=== PATIENT | female | born 1945 | race Caucasian/White ===

== ENCOUNTER 2017-11-09 13:32 | Inpatient (IN) ==
[2017-11-09 16:05] LABS: Basophils % 0.2 %; Eosinophils % 0.2 %; Hematocrit 35.8 % (35.3-44.9); Hemoglobin 11.2 g/dL (11.5-15.4); Immature Granulocytes % 1.9 % (0-4); Lymphocytes # 0.5 K/mcL (0.6-4.6); Lymphocytes % 2.8 %; Mean Corpuscular HGB Conc 31.3 g/dL (31.6-35.5); Mean Corpuscular Volume 89.5 fL (83.0-100.0); Mean Platelet Volume 10.6 fL (9.4-12.4); Monocytes # 0.9 K/mcL (0.0-1.3); Monocytes % 4.8 %; Platelet Count 262 K/mcL (140-400); Red Cell Distribution Width 15.5 % (11.5-14.5); Segmented Neutrophils % 90.1 %
[2017-11-09 16:08] LABS: Albumin 3.2 g/dL (3.5-5.7); Bilirubin,Total 0.9 mg/dL (0.3-1.0); Calcium 9.5 mg/dL (8.6-10.3); Potassium 3.7 mEq/L (3.5-5.1)
[2017-11-09 16:14] LABS: Albumin/Globulin Ratio 0.7 (1.1-2.2); Globulin 4.3 g/dL (2.4-3.5); Total Protein 7.5 g/dL (6.4-8.9)
[2017-11-09 16:41] LABS: Bilirubin,Urine Small (Negative); Blood,Urine Negative (Negative); Clarity,Urine Cloudy (Clear); Color,Urine Dark Yellow (Yellow); Glucose,Urine (UA) Normal (Normal); Ketones,Urine Negative (Negative); Leukocyte Esterase,Urine Small (Negative); Nitrite,Urine Negative (Negative); PH,Urine 5.5 pH Units (5.0-8.0); Protein,Urine Trace mg/dL (Neg-Trace); Urobilinogen,Urine Normal (Normal)
[2017-11-09 16:44] LABS: Bacteria,Urine None Seen per hpf (None-Few); Hyaline Casts,Urine None Seen per lpf (None-Few); RBC,Urine 0-3 per hpf (0-3); Squamous Epithelial Cell,Urine Many per lpf (None-Few)
--- NOTE | 2017-11-09 16:59 | Emergency Department Note ---
Disposition Clinical Impression: Cellulitis Disposition: Admitted As Inpatient Condition: Good Referrals: Orlin Martinez MD [Primary Care Provider] - Forms: ED Satisfaction Letter General Adult HPI - General Chief complaint: ED Extremity Problem,Nontraumatic Stated complaint: weakness/pain/swelling in legs Time Seen by Provider: 11/09/17 16:56 Source: patient Limitations: no limitations - History of Present Illness Pain Scale: 8 - Related Data Home Medications Medication Instructions Recorded Confirmed Furosemide [Lasix] 40 mg PO DAILY 03/08/16 09/29/17 Levothyroxine [Synthroid] 125 mcg PO DAILY 03/08/16 09/29/17 Cholecalciferol (D-3) [Vitamin D] 1,000 unit PO DAILY 03/09/16 09/29/17 Cyanocobalamin (Vitamin B-12) 1,000 mcg PO DAILY 03/09/16 09/29/17 [Vitamin B12] Folic Acid 0.4 mg PO DAILY 03/09/16 09/29/17 Lisinopril/Hydrochlorothiazide 1 tab PO DAILY 03/09/16 09/29/17 [Zestoretic 20-25 mg Tablet] [place]-3/Dha/Epa/Fish Oil [Fish Oil] 1,000 mg PO DAILY 03/18/16 09/29/17 Metoprolol [Lopressor] 50 mg PO DAILY 09/29/17 09/29/17 Omeprazole [PriLOSEC] 40 mg PO DAILY 09/29/17 09/29/17 Warfarin [Coumadin] 7.5 mg PO 1800 09/29/17 09/29/17 Allergies Allergy/AdvReac Type Severity Reaction Status Date / Time aspirin Allergy Difficulty Verified 03/08/16 16:23 Breathing ibuprofen Allergy Difficulty Verified 03/08/16 16:23 Breathing acetaminophen AdvReac Gastrointestinal Verified 03/08/16 22:29 [From Excedrin Back and Body] Upset calcium carbonate AdvReac Gastrointestinal Verified 03/08/16 22:29 [From Excedrin Back and Body] Upset Past Medical History - Past Medical History Medical history: Reports: atrial fibrillation, CHF, hypertension, thyroid disease Surgical history: Reports: other Psychiatric history: Reports: no psych history 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 - Social History Smoking Status: Current every day smoker Smokeless Tobacco Status: No Alcohol use: Reports: none Drug use: Reports: none Physical Exam - General Limitations: no limitations General appearance: alert, in no apparent distress Course Vital Signs Temperature 97.7 F 11/09/17 13:58 Pulse Rate 94 11/09/17 13:58 Respiratory Rate 16 11/09/17 13:58 Blood Pressure 113/78 11/09/17 13:58 O2 Sat by Pulse Oximetry 98 11/09/17 13:58 Temperature 97.9 F 11/09/17 18:07 Pulse Rate 89 11/09/17 18:07 Respiratory Rate 22 11/09/17 18:07 Blood Pressure 108/75 11/09/17 18:07 O2 Sat by Pulse Oximetry 94 11/09/17 18:07 Oxygen Delivery Oxygen Delivery Room Air Medical Decision Making - Lab Data Result diagrams: 11/09/17 15:46 11/09/17 15:46 Lab Results 11/09/17 11/09/17 11/09/17 Range/Units 15:46 15:46 15:46 WBC 18.8 H (4.3-11.1) K/mcL RBC 4.00 (3.82-4.97) M/mcL Hgb 11.2 L (11.5-15.4) g/dL Hct 35.8 (35.3-44.9) % MCV 89.5 (83.0-100.0) fL MCH 28.0 (28.0-33.3) pg MCHC 31.3 L (31.6-35.5) g/dL RDW 15.5 H (11.5-14.5) % Plt Count 262 (140-400) K/mcL MPV 10.6 (9.4-12.4) fL Immature Gran % 1.9 (0-4) % Seg Neutrophils % 90.1 % Lymphocytes % 2.8 % Monocytes % 4.8 % Eosinophils % 0.2 % Basophils % 0.2 % Neutrophils # 17.0 H (1.6-8.9) K/mcL Lymphocytes # 0.5 L (0.6-4.6) K/mcL Monocytes # 0.9 (0.0-1.3) K/mcL Eosinophils # 0.0 (0.0-0.6) K/mcL Basophils # 0.0 (0.0-0.2) K/mcL PT (9.4-12.1) Seconds INR Sodium 133 L (136-145) mEq/L Potassium 3.7 (3.5-5.1) mEq/L Chloride 99 (98-107) mEq/L Carbon Dioxide 26 (23-29) mEq/L BUN 55 H (8-23) mg/dL Creatinine 1.63 H (0.60-1.20) mg/dL Est GFR ( Amer) 37 L (> 60) Est GFR (Non-Af Amer) 31 L (> 60) BUN/Creatinine Ratio 34 H (6-26) Glucose 115 H (70-105) mg/dL Calculated Osmolality 292 (280-300) Lactic Acid 1.1 (0.5-2.2) mmol/L Calcium 9.5 (8.6-10.3) mg/dL Total Bilirubin 0.9 (0.3-1.0) mg/dL AST 9 L (13-39) Units/L ALT 9 (7-52) Units/L Alkaline Phosphatase 149 H (34-104) Units/L Troponin I (< 0.04) ng/mL Serum Total Protein 7.5 (6.4-8.9) g/dL Albumin 3.2 L (3.5-5.7) g/dL Globulin 4.3 H (2.4-3.5) g/dL Albumin/Globulin Ratio 0.7 L (1.1-2.2) Urine Color (Yellow) Urine Clarity (Clear) Urine pH (5.0-8.0) pH Units Ur Specific [place] (1.010-1.025) Urine Protein (Neg-Trace) mg/dL Urine Glucose (UA) (Normal) mg/dL Urine Ketones (Negative) mg/dL Urine Blood (Negative) Urine Nitrite (Negative) Urine Bilirubin (Negative) Urine Urobilinogen (Normal) mg/dL Ur Leukocyte Esterase (Negative) Urine Microscopic RBC (0-3) per hpf Urine Microscopic WBC (0-3) per hpf Ur Squamous Epith Cells (None-Few) per lpf Amorphous Sediment (Few) Urine Bacteria (None-Few) per hpf Hyaline Casts (None-Few) per lpf Ur Culture Indicated? (NO) 11/09/17 11/09/17 11/09/17 Range/Units 15:46 15:46 16:22 WBC (4.3-11.1) K/mcL RBC (3.82-4.97) M/mcL Hgb (11.5-15.4) g/dL Hct (35.3-44.9) % MCV (83.0-100.0) fL MCH (28.0-33.3) pg MCHC (31.6-35.5) g/dL RDW (11.5-14.5) % Plt Count (140-400) K/mcL MPV (9.4-12.4) fL Immature Gran % (0-4) % Seg Neutrophils % % Lymphocytes % % Monocytes % % Eosinophils % % Basophils % % Neutrophils # (1.6-8.9) K/mcL Lymphocytes # (0.6-4.6) K/mcL Monocytes # (0.0-1.3) K/mcL Eosinophils # (0.0-0.6) K/mcL Basophils # (0.0-0.2) K/mcL PT 33.4 H (9.4-12.1) Seconds INR 3.0 Sodium (136-145) mEq/L Potassium (3.5-5.1) mEq/L Chloride (98-107) mEq/L Carbon Dioxide (23-29) mEq/L BUN (8-23) mg/dL Creatinine (0.60-1.20) mg/dL Est GFR ( Amer) (> 60) Est GFR (Non-Af Amer) (> 60) BUN/Creatinine Ratio (6-26) Glucose (70-105) mg/dL Calculated Osmolality (280-300) Lactic Acid (0.5-2.2) mmol/L Calcium (8.6-10.3) mg/dL Total Bilirubin (0.3-1.0) mg/dL AST (13-39) Units/L ALT (7-52) Units/L Alkaline Phosphatase (34-104) Units/L Troponin I < 0.03 (< 0.04) ng/mL Serum Total Protein (6.4-8.9) g/dL Albumin (3.5-5.7) g/dL Globulin (2.4-3.5) g/dL Albumin/Globulin Ratio (1.1-2.2) Urine Color Dark Yellow (Yellow) Urine Clarity Cloudy A (Clear) Urine pH 5.5 (5.0-8.0) pH Units Ur Specific [place] 1.020 (1.010-1.025) Urine Protein Trace (Neg-Trace) mg/dL Urine Glucose (UA) Normal (Normal) mg/dL Urine Ketones Negative (Negative) mg/dL Urine Blood Negative (Negative) Urine Nitrite Negative (Negative) Urine Bilirubin Small H (Negative) Urine Urobilinogen Normal (Normal) mg/dL Ur Leukocyte Esterase Small H (Negative) Urine Microscopic RBC 0-3 (0-3) per hpf Urine Microscopic WBC 5-15 H (0-3) per hpf Ur Squamous Epith Cells Many H (None-Few) per lpf Amorphous Sediment Few (Few) Urine Bacteria None Seen (None-Few) per hpf Hyaline Casts None Seen (None-Few) per lpf Ur Culture Indicated? NO. (NO) Attestation Statement - Attestation Attestation: I examined this patient and my medical decision-making was reviewed with the Resident Physician. I agree with the documented findings, disposition and treatment plan as described except to the extent set forth below. [id number] time provided Patient arrives with a swollen, erythematous left foot. She appears to have chronic lymphadenopathy but states subjectively this is worse. Triage note and vitals reviewed by me
--- NOTE | 2017-11-09 17:13 | Emergency Department Note ---
Disposition Clinical Impression: Cellulitis Qualifiers: Site of cellulitis: extremity Site of cellulitis of extremity: lower extremity Laterality: left Qualified Code(s): L03.116 - Cellulitis of left lower limb Disposition: Admitted As Inpatient Condition: Good Referrals: Orlin Martinez MD [Primary Care Provider] - Forms: ED Satisfaction Letter General Adult HPI - General Chief complaint: ED Extremity Problem,Nontraumatic Stated complaint: weakness/pain/swelling in legs Time Seen by Provider: 11/09/17 16:56 Source: patient Limitations: no limitations Nursing Notes Reviewed: Yes Vital Signs Reviewed: Yes - History of Present Illness HPI Narrative: Patient with past medical history of atrial fibrillation on Coumadin presents today for concern for swelling and erythema of the left lower extremity. The patient has been following with Dr. Jones for concern for a left medial heel wound. She says that it has been a relatively small wound but has gotten significantly worse over the last 2 days. Patient has had associated subjective fever and chills. Patient has had sleeping the lower leg secondary to overall edema but no purulent drainage. Patient's left lower extremity is erythematous and swollen from the knee to the foot. Sensation is still intact. Patient has concern for cellulitis. Blood work as well as blood cultures will be obtained. Patient will be started on vancomycin. Pain Scale: 8 - Related Data Home Medications Medication Instructions Recorded Confirmed Furosemide [Lasix] 40 mg PO DAILY 03/08/16 09/29/17 Levothyroxine [Synthroid] 125 mcg PO DAILY 03/08/16 09/29/17 Cholecalciferol (D-3) [Vitamin D] 1,000 unit PO DAILY 03/09/16 09/29/17 Cyanocobalamin (Vitamin B-12) 1,000 mcg PO DAILY 03/09/16 09/29/17 [Vitamin B12] Folic Acid 0.4 mg PO DAILY 03/09/16 09/29/17 Lisinopril/Hydrochlorothiazide 1 tab PO DAILY 03/09/16 09/29/17 [Zestoretic 20-25 mg Tablet] [place]-3/Dha/Epa/Fish Oil [Fish Oil] 1,000 mg PO DAILY 03/18/16 09/29/17 Metoprolol [Lopressor] 50 mg PO DAILY 09/29/17 09/29/17 Omeprazole [PriLOSEC] 40 mg PO DAILY 09/29/17 09/29/17 Warfarin [Coumadin] 7.5 mg PO 1800 09/29/17 09/29/17 Allergies Allergy/AdvReac Type Severity Reaction Status Date / Time aspirin Allergy Difficulty Verified 03/08/16 16:23 Breathing ibuprofen Allergy Difficulty Verified 03/08/16 16:23 Breathing acetaminophen AdvReac Gastrointestinal Verified 03/08/16 22:29 [From Excedrin Back and Body] Upset calcium carbonate AdvReac Gastrointestinal Verified 03/08/16 22:29 [From Excedrin Back and Body] Upset Review of Systems: CONSTITUTIONAL: Fevers and chills No weight loss HEENT: Eyes: No visual changes. Ears, Nose, Throat: No hearing loss, difficulty talking or unable to swallow. SKIN: Erythema CARDIOVASCULAR: Lower extremity swelling No chest pain, chest pressure or chest discomfort. RESPIRATORY: No shortness of breath, cough or sputum. GASTROINTESTINAL: No anorexia, nausea, vomiting or diarrhea. No abdominal pain or blood. GENITOURINARY: No burning on urination or hematuria. NEUROLOGICAL: No headache, dizziness, syncope, paralysis, ataxia, numbness or tingling in the extremities. No change in bowel or bladder control. MUSCULOSKELETAL: No muscle pain, back pain, joint pain or stiffness. 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 Blanching. The Refill. Sensory intact. Neuro: Alert and Oriented to person, place, and time; No focal deficit, CN 2-12 symmetric and intact - General Limitations: no limitations General appearance: alert, in no apparent distress Course - Reevaluation(s) Reevaluation #1: Vancomycin ordered. Patient has elevated white count but does not have fever or tachycardia. Blood cultures obtained. - Consultations Consultation #1: Discussed with hospitalist, Patel Devries. Patient accepted for admission. Vital Signs Temperature 97.7 F 11/09/17 13:58 Pulse Rate 94 11/09/17 13:58 Respiratory Rate 16 11/09/17 13:58 Blood Pressure 113/78 11/09/17 13:58 O2 Sat by Pulse Oximetry 98 11/09/17 13:58 Temperature 97.7 F 11/09/17 13:58 Pulse Rate 94 11/09/17 13:58 Respiratory Rate 16 11/09/17 13:58 Blood Pressure 113/78 11/09/17 13:58 O2 Sat by Pulse Oximetry 98 11/09/17 13:58 Oxygen Delivery Oxygen Delivery Room Air Medical Decision Making - Medical Records Medical records reviewed: Yes I reviewed the patient's medical records. - Lab Data Lab results reviewed: Yes I reviewed the patient's lab results. Result diagrams: 11/09/17 15:46 11/09/17 15:46 Lab Results 11/09/17 11/09/17 11/09/17 Range/Units 15:46 15:46 15:46 WBC 18.8 H (4.3-11.1) K/mcL RBC 4.00 (3.82-4.97) M/mcL Hgb 11.2 L (11.5-15.4) g/dL Hct 35.8 (35.3-44.9) % MCV 89.5 (83.0-100.0) fL MCH 28.0 (28.0-33.3) pg MCHC 31.3 L (31.6-35.5) g/dL RDW 15.5 H (11.5-14.5) % Plt Count 262 (140-400) K/mcL MPV 10.6 (9.4-12.4) fL Immature Gran % 1.9 (0-4) % Seg Neutrophils % 90.1 % Lymphocytes % 2.8 % Monocytes % 4.8 % Eosinophils % 0.2 % Basophils % 0.2 % Neutrophils # 17.0 H (1.6-8.9) K/mcL Lymphocytes # 0.5 L (0.6-4.6) K/mcL Monocytes # 0.9 (0.0-1.3) K/mcL Eosinophils # 0.0 (0.0-0.6) K/mcL Basophils # 0.0 (0.0-0.2) K/mcL PT (9.4-12.1) Seconds INR Sodium 133 L (136-145) mEq/L Potassium 3.7 (3.5-5.1) mEq/L Chloride 99 (98-107) mEq/L Carbon Dioxide 26 (23-29) mEq/L BUN 55 H (8-23) mg/dL Creatinine 1.63 H (0.60-1.20) mg/dL Est GFR ( Amer) 37 L (> 60) Est GFR (Non-Af Amer) 31 L (> 60) BUN/Creatinine Ratio 34 H (6-26) Glucose 115 H (70-105) mg/dL Calculated Osmolality 292 (280-300) Lactic Acid 1.1 (0.5-2.2) mmol/L Calcium 9.5 (8.6-10.3) mg/dL Total Bilirubin 0.9 (0.3-1.0) mg/dL AST 9 L (13-39) Units/L ALT 9 (7-52) Units/L Alkaline Phosphatase 149 H (34-104) Units/L Troponin I (< 0.04) ng/mL Serum Total Protein 7.5 (6.4-8.9) g/dL Albumin 3.2 L (3.5-5.7) g/dL Globulin 4.3 H (2.4-3.5) g/dL Albumin/Globulin Ratio 0.7 L (1.1-2.2) Urine Color (Yellow) Urine Clarity (Clear) Urine pH (5.0-8.0) pH Units Ur Specific [place] (1.010-1.025) Urine Protein (Neg-Trace) mg/dL Urine Glucose (UA) (Normal) mg/dL Urine Ketones (Negative) mg/dL Urine Blood (Negative) Urine Nitrite (Negative) Urine Bilirubin (Negative) Urine Urobilinogen (Normal) mg/dL Ur Leukocyte Esterase (Negative) Urine Microscopic RBC (0-3) per hpf Urine Microscopic WBC (0-3) per hpf Ur Squamous Epith Cells (None-Few) per lpf Amorphous Sediment (Few) Urine Bacteria (None-Few) per hpf Hyaline Casts (None-Few) per lpf Ur Culture Indicated? (NO) 11/09/17 11/09/17 11/09/17 Range/Units 15:46 15:46 16:22 WBC (4.3-11.1) K/mcL RBC (3.82-4.97) M/mcL Hgb (11.5-15.4) g/dL Hct (35.3-44.9) % MCV (83.0-100.0) fL MCH (28.0-33.3) pg MCHC (31.6-35.5) g/dL RDW (11.5-14.5) % Plt Count (140-400) K/mcL MPV (9.4-12.4) fL Immature Gran % (0-4) % Seg Neutrophils % % Lymphocytes % % Monocytes % % Eosinophils % % Basophils % % Neutrophils # (1.6-8.9) K/mcL Lymphocytes # (0.6-4.6) K/mcL Monocytes # (0.0-1.3) K/mcL Eosinophils # (0.0-0.6) K/mcL Basophils # (0.0-0.2) K/mcL PT 33.4 H (9.4-12.1) Seconds INR 3.0 Sodium (136-145) mEq/L Potassium (3.5-5.1) mEq/L Chloride (98-107) mEq/L Carbon Dioxide (23-29) mEq/L BUN (8-23) mg/dL Creatinine (0.60-1.20) mg/dL Est GFR ( Amer) (> 60) Est GFR (Non-Af Amer) (> 60) BUN/Creatinine Ratio (6-26) Glucose (70-105) mg/dL Calculated Osmolality (280-300) Lactic Acid (0.5-2.2) mmol/L Calcium (8.6-10.3) mg/dL Total Bilirubin (0.3-1.0) mg/dL AST (13-39) Units/L ALT (7-52) Units/L Alkaline Phosphatase (34-104) Units/L Troponin I < 0.03 (< 0.04) ng/mL Serum Total Protein (6.4-8.9) g/dL Albumin (3.5-5.7) g/dL Globulin (2.4-3.5) g/dL Albumin/Globulin Ratio (1.1-2.2) Urine Color Dark Yellow (Yellow) Urine Clarity Cloudy A (Clear) Urine pH 5.5 (5.0-8.0) pH Units Ur Specific [place] 1.020 (1.010-1.025) Urine Protein Trace (Neg-Trace) mg/dL Urine Glucose (UA) Normal (Normal) mg/dL Urine Ketones Negative (Negative) mg/dL Urine Blood Negative (Negative) Urine Nitrite Negative (Negative) Urine Bilirubin Small H (Negative) Urine Urobilinogen Normal (Normal) mg/dL Ur Leukocyte Esterase Small H (Negative) Urine Microscopic RBC 0-3 (0-3) per hpf Urine Microscopic WBC 5-15 H (0-3) per hpf Ur Squamous Epith Cells Many H (None-Few) per lpf Amorphous Sediment Few (Few) Urine Bacteria None Seen (None-Few) per hpf Hyaline Casts None Seen (None-Few) per lpf Ur Culture Indicated? NO. (NO) - Radiology Data Radiology results reviewed: Yes I reviewed the patient's radiology results. - EKG Data EKG #1 EKG attestation: Yes I reviewed and interpreted this EKG. EKG results narrative: EKG shows atrial fibrillation with a ventricular rate of 86. QRS 97. QTC 402. No significant elevations or depressions.
[2017-11-09 17:20] LABS: Amorphous Sediment,Urine Few (Few)
[2017-11-09 17:30] LABS: Prothrombin Time 33.4 Seconds (9.4-12.1)
[2017-11-09] MEDS ORDERED: *HR* Morphine Immed Rel 30 MG TABLET PO ONE (17:53)
[2017-11-09] MEDS ORDERED: Naloxone 0.4 MG/ML INJ IVP PRN (21:58)
[2017-11-09] MEDS ORDERED: Vancomycin 1,750 MG in 0.9 % Sodium Chloride 250 ML IVPB SCH (23:00)
[2017-11-10] MEDS ORDERED: *HR* Morphine Immed Rel 30 MG TABLET PO PRN (01:41)
--- NOTE | 2017-11-10 03:23 | Internal Med History&Physical ---
Date of Encounter: 11/09/17 Time of Encounter: 20:00 Assessment and Plan (1) Hypothyroidism Current visit: Yes Status: Acute Cont home medications Qualifiers: Hypothyroidism type: acquired Qualified Code(s): E03.9 - Hypothyroidism, unspecified (2) HTN (hypertension) Current visit: Yes Status: Acute Cont home medications Qualifiers: Hypertension type: essential hypertension Qualified Code(s): I10 - Essential (primary) hypertension (3) Cellulitis Current visit: Yes Status: Acute Pt has cellulitis and leukocytosis. Not meet criteria of sepsis. - Cont iv vancomycin. Pt is at high risk because she is on vanco, needs close monitoring. Qualifiers: Site of cellulitis: extremity Site of cellulitis of extremity: lower extremity Laterality: left Qualified Code(s): L03.116 - Cellulitis of left lower limb (4) DVT prophylaxis Current visit: No Status: Acute Pt is on coumadin with therapeutic INR (5) Atrial fibrillation Current visit: No Status: Chronic HR is well controlled. Pt is on coumadin for AC Qualifiers: Atrial fibrillation type: chronic Qualified Code(s): I48.2 - Chronic atrial fibrillation (6) CKD (chronic kidney disease) Current visit: Yes Status: Acute Cr level is around baseline, avoid nephrotoxic medications, closely titrate vanco (dosing by pharmacy) Qualifiers: Chronic kidney disease stage: stage 3 (moderate) Qualified Code(s): N18.3 - Chronic kidney disease, stage 3 (moderate) Internal Medicine - H&P: HPI Chief complaint: Left leg pain/redness Admitted From: Home Plans for Post Hospital Care: Home History of present illness: Ms. Shelton is a 72 year old female with Hx of A Fib on coumadin, HTN, hypothyroidism, diastolic CHF, hx of recurrent cellulitis present to ER for left leg pain and redness for 4 days. Pt said she has on and off recurrent LE cellulitis for about 4 yrs. It happens either on the right or the left side. This time she has left side pain and skin redness. Pt denies fever, nausea, or vomiting. Pt denies recent travel. Pt was admitted for further management. Past Med Surg Social Fam HX - Past Medical History Medical history: atrial fibrillation, CHF, hypertension, thyroid disease Psychiatric history: no psych history - Past Surgical History Surgical History: other - Social History Smoking Status: Current every day smoker Smokeless Tobacco Status: No Alcohol use: none Drug use: none - Family History Mother Living Status: Father Living Status: Hx Family Cardiac Disorders: Yes (HYPERTENSION.) Son Living Status: Still Living Internal Medicine - H&P: Meds Furosemide [Lasix] 40 mg PO DAILY 03/08/16 [History] Cholecalciferol (D-3) [Vitamin D] 1,000 unit PO DAILY 03/09/16 [History] Cyanocobalamin (Vitamin B-12) [Vitamin B12] 1,000 mcg PO DAILY 03/09/16 [History ] Folic Acid 0.4 mg PO DAILY 03/09/16 [History] Lisinopril/Hydrochlorothiazide [Zestoretic 20-25 mg Tablet] 1 tab PO DAILY 03/09 [History] [place]-3/Dha/Epa/Fish Oil [Fish Oil] 1,000 mg PO DAILY 03/18/16 [History] Omeprazole [PriLOSEC] 40 mg PO DAILY 09/29/17 [History] Warfarin [Coumadin] 7.5 mg PO 1800 09/29/17 [History] Calcium Carbonate [Calcium] 600 mg PO DAILY 11/09/17 [History] Diltiazem HCl [Diltiazem ER] 120 mg PO DAILY 11/09/17 [History] Guaifenesin [Mucinex] 600 mg PO DAILY 11/09/17 [History] Levothyroxine Sodium 150 mcg PO QAM 11/09/17 [History] Metoprolol XL (24 HR) Succ [Toprol XL] 50 mg PO DAILY 11/09/17 [History] 3 Allergy/AdvReac Type Severity Reaction Status Date / Time aspirin Allergy Difficulty Verified 03/08/16 16:23 Breathing ibuprofen Allergy Difficulty Verified 03/08/16 16:23 Breathing acetaminophen AdvReac Gastrointestinal Verified 03/08/16 22:29 [From Excedrin Back and Body] Upset calcium carbonate AdvReac Gastrointestinal Verified 03/08/16 22:29 [From Excedrin Back and Body] Upset All Systems PM: A 10-system review of systems was performed and is negative for pertinent findings except as documented above in the HPI. - Constitutional Vitals: Temp Pulse Resp BP Pulse Ox 97.9 F 95 14 103/53 92 11/10/17 02:45 11/10/17 02:45 11/10/17 02:45 11/10/17 02:45 11/10/17 02:45 General appearance: Present: A&O X 3, no acute distress, answers questions appropriately - Head Head exam: Present: atraumatic, normocephalic - Eye Eye exam: Present: PERRL, conjuntiva pink, sclera anicteric Pupils: Present: PERRL Additional comments: Right eye is blind - Neck Neck exam general surgery: Present: supple, trachea midline. Absent: lymphadenopathy - Respiratory Respiratory exam: Present: CTAB. Absent: accessory muscle use, rales, rhonchi, wheezes - Cardiovascular Cardiovascular exam: Present: irregular rhythm, +S1, +S2. Absent: diastolic murmur, gallop, rubs, systolic murmur - GI/Abdominal GI/Abdominal exam: Present: normal bowel sounds, soft, no peritoneal signs. Absent: distended, tenderness - Extremities Exam Extremities exam: Present: pedal edema (B/L), warm, radial pulses palpable and symmetrical. Absent: calf tenderness, cyanotic Additional comments: Left leg skin redness/ warmth/ tenderness up to above knee. No open wound/ discharge - Neurological Exam Neurological exam: Present: CN II-XII intact, oriented X3, no focal deficits. Absent: pronater drift, facial droop, speech deficit - Skin Skin exam: Present: dry, intact Internal Med - H&P Results - Labs CBC & Chem 7: 11/09/17 15:46 11/09/17 15:46 - EKG Data -: EKG Interpreted by Myself (A Fib) Rate: normal
[2017-11-10 05:13] LABS: Basophils % 0.1 %; Eosinophils # 0.1 K/mcL (0.0-0.6); Eosinophils % 0.4 %; Hematocrit 33.3 % (35.3-44.9); Hemoglobin 10.7 g/dL (11.5-15.4); Immature Granulocytes % 3.9 % (0-4); Lymphocytes # 0.5 K/mcL (0.6-4.6); Lymphocytes % 3.2 %; Mean Corpuscular HGB Conc 32.1 g/dL (31.6-35.5); Mean Corpuscular Hemoglobin 28.1 pg (28.0-33.3); Mean Corpuscular Volume 87.4 fL (83.0-100.0); Mean Platelet Volume 10.5 fL (9.4-12.4); Monocytes # 0.8 K/mcL (0.0-1.3); Monocytes % 4.5 %; Neutrophils # 14.7 K/mcL (1.6-8.9); Platelet Count 241 K/mcL (140-400); Red Blood Count 3.81 M/mcL (3.82-4.97); Red Cell Distribution Width 15.8 % (11.5-14.5); Segmented Neutrophils % 87.9 %
[2017-11-10 05:17] LABS: INR 4.2
[2017-11-10 05:21] LABS: Prothrombin Time 46.5 Seconds (9.4-12.1)
[2017-11-10 05:36] LABS: Calcium 8.9 mg/dL (8.6-10.3); Magnesium 1.9 mg/dL (1.6-2.6); Potassium 3.6 mEq/L (3.5-5.1)
[2017-11-10] MEDS ORDERED: 0.9 % Sodium Chloride 500 ML IVC ONE ×2 (08:49→12:04)
[2017-11-10] MEDS ORDERED: Diltiazem CD (24hr) 120 MG CAPSULE PO SCH (09:00)
[2017-11-10] MEDS ORDERED: Metoprolol XL (24 HR) Succ 50 MG TAB.ER.24H PO SCH (09:00)
[2017-11-10] MEDS ORDERED: Furosemide 40 MG TABLET PO SCH (09:00)
[2017-11-10] MEDS: Cholecalciferol (D-3) 1,000 UNIT TABLET PO SCH (11:17)
[2017-11-10] MEDS: Cyanocobalamin (B-12) 1,000 MCG TABLET PO SCH (11:17)
[2017-11-10] MEDS: Folic Acid 1 MG TABLET PO SCH (11:17)
[2017-11-10] MEDS ORDERED: Methyl Salicylate/Menthol 28 GM TUBE TP PRN (14:42)
[2017-11-10] MEDS ORDERED: 0.9 % Sodium Chloride 1,000 ML IVC ONE ×2 (15:48→18:09)
[2017-11-10] MEDS ORDERED: 0.9 % Sodium Chloride 1,000 ML ONE (15:51)
[2017-11-10] MEDS: FISH OIL 500 MG PO SCH (17:08)
[2017-11-10] MEDS ORDERED: Warfarin perPT PO PRN (18:00)
--- NOTE | 2017-11-10 19:07 | Internal Med Progress Note ---
Date of Encounter: 11/10/17 Time of Encounter: 10:45 - Assessment and plan (1) Cellulitis Current Visit: Yes Status: Acute Assessment and plan: Patient was cellulitis to left lower extremity. She has been placed on IV vancomycin. Today she met SIRS criteria with tachycardia, hypotension, source of infection. Remains afebrile. Continue IV vancomycin. Wound care consult has been entered. Qualifiers: Site of cellulitis: extremity Site of cellulitis of extremity: lower extremity Laterality: left Qualified Code(s): L03.116 - Cellulitis of left lower limb (2) SIRS (systemic inflammatory response syndrome) Current Visit: Yes Status: Acute Assessment and plan: Patient was admitted with cellulitis to left lower extremity. Patient with hypotension today, as well as leukocytosis, and tachycardia. At this point, patient remained hypotensive and is apparently receiving her third liter of 0.9 normal saline bolus. Will add pressors if BP does not normalize after fluid boluses. Continue vancomycin IV Closely monitor vital signs and patient condition. Patient has been moved from observation unit to stepdown unit for closer monitoring. (3) CKD (chronic kidney disease) Current Visit: Yes Status: Chronic Assessment and plan: Stage III. Patient is on vancomycin, pharmacy to dose. Try to avoid other nephrotoxins Patient is receiving IV fluid hydration. Continue to monitor labs. Qualifiers: Chronic kidney disease stage: stage 3 (moderate) Qualified Code(s): N18.3 - Chronic kidney disease, stage 3 (moderate) (4) Hypothyroidism Current Visit: Yes Status: Chronic Assessment and plan: Chronic. Continue home medication. Qualifiers: Hypothyroidism type: acquired Qualified Code(s): E03.9 - Hypothyroidism, unspecified (5) Atrial fibrillation Current Visit: Yes Status: Chronic Assessment and plan: Rate controlled. Continue Coumadin. Pharmacy to dose. Patient takes diltiazem 120 mg by mouth daily at home as well as Toprol-XL 50 mg by mouth daily. Metoprolol has been stopped due to hypotension/SIRS. Will restart when patient is stable. Qualifiers: Atrial fibrillation type: chronic Qualified Code(s): I48.2 - Chronic atrial fibrillation (6) Hypotension Current Visit: Yes Status: Acute Assessment and plan: Acute due to SIRS secondary to cellulitis and infection of lower extremity. Patient is on vancomycin and is receiving IV fluid boluses. Plan as above. Qualifiers: Hypotension type: other hypotension type Qualified Code(s): I95.89 - Other hypotension (7) HTN (hypertension) Current Visit: Yes Status: Acute Assessment and plan: Chronic. Medications have been held at this time due to hypotension/SIRS. Restart after patient is stable. Qualifiers: Hypertension type: essential hypertension Qualified Code(s): I10 - Essential (primary) hypertension (8) DVT prophylaxis Current Visit: No Status: Acute Assessment and plan: Patient is anticoagulated on Coumadin. Pharmacy is dosing. INR is supratherapeutic at 4.2. Continue to monitor labs in the morning. - Time Spent With Patient 25 - 35 minutes - Subjective Interval history: Patient was seen the first time today at 10:45 AM. I visited with patient several other times due to hypotension and concern for sirs/sepsis. He is alert and oriented throughout the entire process, denied any dizziness nausea and vomiting, vision changes, lightheadedness. She denied abdominal pain, chest pain or shortness of breath. Patient was moved to 2 NE. room 26 for closer monitoring. - Constitutional Vitals: Temp Pulse Resp BP Pulse Ox 97.8 F 81 17 100/67 94 11/10/17 19:00 11/10/17 19:00 11/10/17 19:00 11/10/17 19:00 11/10/17 19:00 General appearance: Present: cooperative, disheveled, A&O X 3, morbidly obese, pleasant, no acute distress, answers questions appropriately - Head Head exam: Present: atraumatic, normal inspection, normocephalic - Eye Eye exam: Present: conjuntiva pink, sclera anicteric - Neck Neck exam general surgery: Present: supple, trachea midline. Absent: lymphadenopathy, tenderness - Respiratory Respiratory exam: Present: CTAB. Absent: accessory muscle use, chest wall tenderness, prolonged expiratory phase, rales, rhonchi, wheezes - Cardiovascular Cardiovascular exam: Present: RRR, +S1, +S2. Absent: diastolic murmur, gallop, irregular rhythm, rubs, systolic murmur - GI/Abdominal GI/Abdominal exam: Present: normal bowel sounds, soft. Absent: distended, hepatomegaly, tenderness - Extremities Exam Extremities exam: Present: pedal edema, tenderness, warm, radial pulses palpable and symmetrical. Absent: calf tenderness, cyanotic, normal inspection - Neurological Exam Neurological exam: Present: alert, oriented X3, no focal deficits. Absent: facial droop, speech deficit - Skin Skin exam: Present: dry, intact, normal color, warm. Absent: rash Internal Medicine: Result - Labs CBC & Chem 7: 11/10/17 04:28 11/10/17 04:28 Labs: Short CBC 11/10/17 Range/Units 04:28 WBC 16.8 H (4.3-11.1) K/mcL Hgb 10.7 L (11.5-15.4) g/dL Hct 33.3 L (35.3-44.9) % Plt Count 241 (140-400) K/mcL Neutrophils # 14.7 H (1.6-8.9) K/mcL BMP 11/10/17 04:28 Sodium 133 L Potassium 3.6 Chloride 100 Carbon Dioxide 28 BUN 55 H Creatinine 1.58 H Glucose 140 H Calcium 8.9 - ABG Interpretation ABG results: PT/INR, D-dimer PT 46.5 Seconds (9.4-12.1) H* 11/10/17 04:28 Consult Discharge Plan - Plan Referrals: Orlin Martinez MD [Primary Care Provider] -
[2017-11-10] MEDS ORDERED: Piperacillin/Tazobactam 3.375 GM in 0.9 % Sodium Chloride Mini Bag 100 ML IVPB SCH (20:00)
[2017-11-11] MEDS: Piperacillin/Tazobactam 3.375 GM in 0.9 % Sodium Chloride Mini Bag 100 ML IVPB SCH ×2 (06:46→13:20)
[2017-11-11] MEDS: FISH OIL 500 MG PO SCH (07:41)
[2017-11-11] MEDS: Folic Acid 1 MG TABLET PO SCH (07:44)
[2017-11-11] MEDS: Cyanocobalamin (B-12) 1,000 MCG TABLET PO SCH (07:44)
[2017-11-11] MEDS: Cholecalciferol (D-3) 1,000 UNIT TABLET PO SCH (07:45)
[2017-11-11 07:54] LABS: INR 4.9; Prothrombin Time 54.8 Seconds (9.4-12.1)
[2017-11-11 08:05] LABS: Basophils % 0.2 %; Eosinophils # 0.2 K/mcL (0.0-0.6); Eosinophils % 1.2 %; Hematocrit 29.3 % (35.3-44.9); Immature Granulocytes % 1.3 % (0-4); Lymphocytes # 0.7 K/mcL (0.6-4.6); Lymphocytes % 5.5 %; Mean Corpuscular HGB Conc 30.7 g/dL (31.6-35.5); Mean Corpuscular Hemoglobin 27.8 pg (28.0-33.3); Mean Corpuscular Volume 90.4 fL (83.0-100.0); Mean Platelet Volume 10.6 fL (9.4-12.4); Monocytes # 0.6 K/mcL (0.0-1.3); Monocytes % 4.7 %; Neutrophils # 11.7 K/mcL (1.6-8.9); Platelet Count 228 K/mcL (140-400); Red Blood Count 3.24 M/mcL (3.82-4.97); Red Cell Distribution Width 16.1 % (11.5-14.5); Segmented Neutrophils % 87.1 %
[2017-11-11 08:48] LABS: Calcium 8.3 mg/dL (8.6-10.3)
[2017-11-11 10:00] LABS: ABG Base Excess 0 mEq/L (-2 to 3); ABG HCO3 26 mEq/L (21-27); ABG Oxygen Saturation 91 % (95-98); ABG PCO2 51 mmHg (35-45); ABG PH 7.32 pH Units (7.32-7.45); ABG PO2 68 mmHg (85-104); ABG TCO2 28 mEq/L (20-26)
[2017-11-11] MEDS ORDERED: 0.9 % Sodium Chloride 1,000 ML IVC ONE (11:09)
--- NOTE | 2017-11-11 11:11 | Internal Med Progress Note ---
Date of Encounter: 11/11/17 Time of Encounter: 16:50 - Assessment and plan (1) Severe sepsis Current Visit: Yes Status: Acute Assessment and plan: Secondary to Left leg cellulitis. Patient had tachycardia, hypotension, leukocytosis Leukocytosis improved BP improving today - must use manual BP measurements She is afebrile Will change vancomycin to Linezolid to reduce renal toxicity, kidney function worsening. Will change Zosyn to Cefepime to reduce renal toxicity since kidney function worsening. (2) Acute on chronic kidney failure Current Visit: Yes Status: Acute Assessment and plan: Likely from hypotension and sepsis. - Continue IV fluid resuscitation - Will DC vancomycin and start Lenizolid, - DC Zosyn and start Cefepime - Avoid nephrotoxins - Recheck in AM, if no improvement, will consult Nephrology Qualifiers: Acute renal failure type: unspecified Chronic kidney disease stage: stage 3 (moderate) Qualified Code(s): N17.9 - Acute kidney failure, unspecified; N18.3 - Chronic kidney disease, stage 3 (moderate); N18.3 - Chronic kidney disease, stage 3 (moderate) (3) Atrial fibrillation Current Visit: Yes Status: Chronic Assessment and plan: Rate controlled. Continue Coumadin. Pharmacy to dose. Patient takes diltiazem 120 mg by mouth daily at home as well as Toprol-XL 50 mg by mouth daily. Metoprolol has been stopped due to hypotension/SIRS. Will restart when patient is stable. Qualifiers: Atrial fibrillation type: chronic Qualified Code(s): I48.2 - Chronic atrial fibrillation (4) CKD (chronic kidney disease) Current Visit: Yes Status: Chronic Assessment and plan: Stage III. Patient is on vancomycin, pharmacy to dose. Try to avoid other nephrotoxins Patient is receiving IV fluid hydration. Continue to monitor labs. Qualifiers: Chronic kidney disease stage: stage 3 (moderate) Qualified Code(s): N18.3 - Chronic kidney disease, stage 3 (moderate) (5) Hypothyroidism Current Visit: Yes Status: Chronic Assessment and plan: Chronic. Continue home medication. Qualifiers: Hypothyroidism type: acquired Qualified Code(s): E03.9 - Hypothyroidism, unspecified (6) Cellulitis of right lower extremity Current Visit: No Status: Acute (7) DVT prophylaxis Current Visit: No Status: Acute Assessment and plan: Patient is anticoagulated on Coumadin. Pharmacy is dosing. INR is supratherapeutic at 4.2. Continue to monitor labs in the morning. - Subjective Interval history: Patient has no complaints today. BP on machine reading 84/58, manual BP reading 103/52. She denies SOB, n/v, fevers/chills. Leg pain not much better currently. - Constitutional Vitals: Temp Pulse Resp BP Pulse Ox 98 F 86 17 96/62 96 11/11/17 10:39 11/11/17 10:39 11/11/17 10:39 11/11/17 10:39 11/11/17 10:39 General appearance: Present: cooperative, disheveled, A&O X 3, morbidly obese, pleasant, no acute distress, answers questions appropriately Exam: - Head Head exam: Present: atraumatic, normal inspection, normocephalic - Eye Eye exam: Present: conjuntiva pink, sclera anicteric - Neck Neck exam general surgery: Present: supple, trachea midline. Absent: lymphadenopathy, tenderness - Respiratory Respiratory exam: Present: CTAB. Absent: accessory muscle use, chest wall tenderness, prolonged expiratory phase, rales, rhonchi, wheezes - Cardiovascular Cardiovascular exam: Present: RRR, +S1, +S2. Absent: diastolic murmur, gallop, irregular rhythm, rubs, systolic murmur - GI/Abdominal GI/Abdominal exam: Present: normal bowel sounds, soft. Absent: distended, hepatomegaly, tenderness - Extremities Exam Extremities exam: Present: pedal edema, tenderness, warm, radial pulses palpable and symmetrical. Absent: calf tenderness, cyanotic, normal inspection - Neurological Exam Neurological exam: Present: alert, oriented X3, no focal deficits. Absent: facial droop, speech deficit - Skin Skin exam: Present: dry, intact, normal color, warm. Absent: rash Internal Medicine: Result - Labs CBC & Chem 7: 11/11/17 06:33 11/11/17 06:33 Labs: Short CBC 11/11/17 Range/Units 06:33 WBC 13.4 H (4.3-11.1) K/mcL Hgb 9.0 L D (11.5-15.4) g/dL Hct 29.3 L (35.3-44.9) % Plt Count 228 (140-400) K/mcL Neutrophils # 11.7 H (1.6-8.9) K/mcL BMP 11/11/17 06:33 Sodium 133 L Potassium 4.0 Chloride 102 Carbon Dioxide 24 BUN 66 H Creatinine 2.42 H Glucose 113 H Calcium 8.3 L - ABG Interpretation ABG results: ABG ABG pH 7.32 pH Units (7.32-7.45) 11/11/17 09:56 ABG pCO2 51 mmHg (35-45) H 11/11/17 09:56 ABG pO2 68 mmHg (85-104) L 11/11/17 09:56 ABG O2 Saturation 91 % (95-98) L 11/11/17 09:56 PT/INR, D-dimer PT 54.8 Seconds (9.4-12.1) H* 11/11/17 06:33 - Impressions Impressions Chest X-Ray 11/10/17 19:28 IMPRESSION: Stable chest x-ray with cardiomegaly but no acute lung parenchyma or pleural disease. D/ / 11/10/2017 21:12:41 Agnes Anaya MD / bcarter Interpreting Provider: Agnes Anaya MD Consult Discharge Plan - Plan Referrals: Orlin Martinez MD [Primary Care Provider] -
[2017-11-11] MEDS: Acetaminophen 325 MG TABLET PO PRN (16:43)
[2017-11-11] MEDS ORDERED: Aminoglycoside Consult 1 EACH MC ONE (18:56)
[2017-11-11] MEDS: Miconazole 2% ointment 114 GM TUBE TP SCH (20:33)
[2017-11-11] MEDS: Cefepime HCl 2,000 MG in Water for inj. (sterile) 20 ML 20 ML IVP SCH (20:34)
[2017-11-12 05:27] LABS: Basophils % 0.3 %; Eosinophils # 0.3 K/mcL (0.0-0.6); Eosinophils % 2.2 %; Hematocrit 28.6 % (35.3-44.9); Hemoglobin 8.8 g/dL (11.5-15.4); Immature Granulocytes % 1.5 % (0-4); Lymphocytes # 0.8 K/mcL (0.6-4.6); Lymphocytes % 6.1 %; Mean Corpuscular HGB Conc 30.8 g/dL (31.6-35.5); Mean Corpuscular Hemoglobin 27.7 pg (28.0-33.3); Mean Corpuscular Volume 89.9 fL (83.0-100.0); Mean Platelet Volume 10.3 fL (9.4-12.4); Monocytes # 0.6 K/mcL (0.0-1.3); Monocytes % 4.3 %; Neutrophils # 11.7 K/mcL (1.6-8.9); Nucleated Red Blood Cells 0.1 /100 WBC (0); Platelet Count 274 K/mcL (140-400); Red Blood Count 3.18 M/mcL (3.82-4.97); Red Cell Distribution Width 16.5 % (11.5-14.5); Segmented Neutrophils % 85.6 %
[2017-11-12 05:40] LABS: Calcium 8.1 mg/dL (8.6-10.3); Potassium 4.1 mEq/L (3.5-5.1)
[2017-11-12 05:41] LABS: INR 4.4
[2017-11-12] MEDS: FISH OIL 500 MG PO SCH (08:11)
[2017-11-12] MEDS: Folic Acid 1 MG TABLET PO SCH (08:12)
[2017-11-12] MEDS: Cholecalciferol (D-3) 1,000 UNIT TABLET PO SCH (08:12)
[2017-11-12] MEDS: Cyanocobalamin (B-12) 1,000 MCG TABLET PO SCH (08:12)
[2017-11-12] MEDS: Miconazole 2% ointment 114 GM TUBE TP SCH ×2 (08:13→21:20)
[2017-11-12] MEDS ORDERED: 0.9 % Sodium Chloride 1,000 ML IVC SCH (08:30)
--- NOTE | 2017-11-12 10:03 | Electrocardiograph Report ---
[place] [id number] Test Date: 2017-11-09 Pat Name: Consuelo Shelton Department: [id number] Room: 2N6 Gender: F Security System Administrator: : [id number] Requested By: Lj Zarate Order Number: [id number] Reading MD: Andrzej Lynne DO Measurements Intervals [place] Rate: 86 P: [place]: 0 QRS: 8 QRSD: 97 T: 52 QT: 359 QTc: 402 Interpretive Statements ATRIAL FIBRILLATION LOW QRS VOLTAGE IN PRECORDIAL LEADS Electronically Signed On 11-12-2017 10:02:04 EST by Andrzej Lynne DO
[2017-11-12] MEDS: Acetaminophen 325 MG TABLET PO PRN ×2 (10:15→21:19)
--- NOTE | 2017-11-12 10:53 | Nephrology Consult Note ---
Date of Encounter: 11/12/17 Time of Encounter: 09:25 Assessment and Plan (1) Acute on chronic kidney failure Current Visit: Yes Status: Acute Nonoliguric acute kidney injury on chronic kidney disease stage III. I suspect she has a multifactorial etiology for the acute kidney injury including prerenal , potentionally medication induced(she is now off the vancomycin); and her chronic kidney disease risk factors include morbid obesity, chronic diuretics for the lymphedema, frequent antibiotics for the lower extremity venous stasis induced frequent cellulitis. I will start an SATYA workup with serologies, urine studies and renal imaging. Continue to follow a renal protective strategy by avoiding nephrotoxins as able , and to dose medications by GFR. Thank you for consulting the [facility], and I will continue to follow with you. Qualifiers: Acute renal failure type: unspecified Chronic kidney disease stage: stage 3 (moderate) Qualified Code(s): N17.9 - Acute kidney failure, unspecified; N18.3 - Chronic kidney disease, stage 3 (moderate); N18.3 - Chronic kidney disease, stage 3 (moderate) (2) CKD (chronic kidney disease), stage III Current Visit: Yes Status: Chronic I reviewed the lab data in the [facility], and she has CKD stage III at baseline. 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 I will start a CKD workup as well. (3) Venous stasis dermatitis of both lower extremities Current Visit: Yes Status: Chronic Chronic venous stasis. She follows with an outpatient wound care for the lymphedema. (4) Cellulitis Current Visit: Yes Status: Acute As per primary team. Agree with avoiding vancomycin. Qualifiers: Site of cellulitis: extremity Site of cellulitis of extremity: lower extremity Laterality: left Qualified Code(s): L03.116 - Cellulitis of left lower limb (5) HTN (hypertension) Current Visit: Yes Status: Chronic Continue to hold the BETSY inhibitor Qualifiers: Hypertension type: essential hypertension Qualified Code(s): I10 - Essential (primary) hypertension (6) Hyponatremia Current Visit: Yes Status: Acute She was previously on hydrochlorothiazide, and thiazide-type diuretics can promote a higher risk for hyponatremia. She has had the lisinopril and hydrochlorothiazide since held during this admission. I will check a hyponatremia workup with urine osmolality, urine sodium, cortisol, serum uric acid. History of Present Illness - Reason for Consult Consult date: 11/12/17 Acute Kidney Injury, Chronic Kidney Disease, hyponatremia Requesting physician: Ean Lo - Chief Complaint SATYA on CKD - History of Present Illness The patient is a very kind 72-year-old morbidly obese female with a past medical history of A. fib, hypertension, CKD stage III (she denied having a previous wax bleacher), chronic lymphedema/venous stasis followed by a engagement specialist, and etc. who presented with cellulitis earlier this week. Nephrology was consult it due to acute kidney injury on chronic kidney disease stage III. The patient's cellulitis was severe enough that she required IV vancomycin; of note, her trough levels were well below 20, and she has since been changed off Vanco. She denied having nausea, vomiting, diarrhea, dysuria. She has a Gutierrez catheter in place. Her primary care is Dr. Martinez. She did not affirm chest pain or palpitations, and has a history of A. fib. She denied taking [id number] NSAIDs. Family history: Her 1st cousin had ESRD Past Med Surg Social Fam HX - Past Medical History Medical history: atrial fibrillation, CHF, hypertension, thyroid disease Psychiatric history: no psych history - Past Surgical History Surgical History: other - Social History Smoking Status: Current every day smoker Smokeless Tobacco Status: No Alcohol use: none Drug use: none - Family History Mother Living Status: Father Living Status: Hx Family Cardiac Disorders: Yes (HYPERTENSION.) Son Living Status: Still Living Medications and Allergies Furosemide [Lasix] 40 mg PO DAILY 03/08/16 [History] Cholecalciferol (D-3) [Vitamin D] 1,000 unit PO DAILY 03/09/16 [History] Cyanocobalamin (Vitamin B-12) [Vitamin B12] 1,000 mcg PO DAILY 03/09/16 [History ] Folic Acid 0.4 mg PO DAILY 03/09/16 [History] Lisinopril/Hydrochlorothiazide [Zestoretic 20-25 mg Tablet] 1 tab PO DAILY 03/09 [History] [place]-3/Dha/Epa/Fish Oil [Fish Oil] 1,000 mg PO DAILY 03/18/16 [History] Omeprazole [PriLOSEC] 40 mg PO DAILY 09/29/17 [History] Warfarin [Coumadin] 7.5 mg PO 1800 09/29/17 [History] Calcium Carbonate [Calcium] 600 mg PO DAILY 11/09/17 [History] Diltiazem HCl [Diltiazem ER] 120 mg PO DAILY 11/09/17 [History] Guaifenesin [Mucinex] 600 mg PO DAILY 11/09/17 [History] Levothyroxine Sodium 150 mcg PO QAM 11/09/17 [History] Metoprolol XL (24 HR) Succ [Toprol XL] 50 mg PO DAILY 11/09/17 [History] 3 Allergy/AdvReac Type Severity Reaction Status Date / Time aspirin Allergy Difficulty Verified 03/08/16 16:23 Breathing ibuprofen Allergy Difficulty Verified 03/08/16 16:23 Breathing acetaminophen AdvReac Gastrointestinal Verified 03/08/16 22:29 [From Excedrin Back and Body] Upset calcium carbonate AdvReac Gastrointestinal Verified 03/08/16 22:29 [From Excedrin Back and Body] Upset Review of Systems All Systems: reviewed and no additional remarkable complaints except as stated Exam - Vital Signs Vital signs: Initial Vital Signs Temp Pulse Resp BP Pulse Ox 97.7 F 94 16 113/78 98 11/09/17 13:58 11/09/17 13:58 11/09/17 13:58 11/09/17 13:58 11/09/17 13:58 Vital Signs - Last 8 Hours Temp Pulse Resp BP Pulse Ox 11/12/17 06:49 97.6 F 80 18 108/56 95 11/12/17 04:50 98.8 F 83 20 112/58 94 Intake and Output 11/11/17 11/12/17 11/12/17 23:59 07:59 15:59 Intake Total 420 / 420 0 / 0 Output Total 300 / 300 Balance 420 / 420 -300 / -300 Intake: IV Fluids 300 / 300 Zyvox Premix 600mg/300mL 600 mg 300 / 300 In 300 ml @ 150 mls/hr IVPB Q12HR [facility] Rx#:[id number] Oral 120 / 120 0 / 0 Output: Catheter 300 / 300 Other: Meal Dinner Percent of Meal Consumed 25% Weight 130.4 kg Patient Weight 11/12/17 23:59 Weight 130.4 kg Results - Lab Results 11/12/17 04:57 11/12/17 04:57 Most recent lab results ABG pH 7.32 pH Units (7.32-7.45) 11/11/17 09:56 ABG pCO2 51 mmHg (35-45) H 11/11/17 09:56 ABG pO2 68 mmHg (85-104) L 11/11/17 09:56 ABG HCO3 26 mEq/L (21-27) 11/11/17 09:56 ABG O2 Saturation 91 % (95-98) L 11/11/17 09:56 Calcium 8.1 mg/dL (8.6-10.3) L 11/12/17 04:57 Magnesium 1.9 mg/dL (1.6-2.6) 11/10/17 04:28 I reviewed progress notes, medication lists (both inpatient and home) disease, vital signs, labs, and imaging. Consult Discharge Plan - Plan Referrals: Orlin Martinez MD [Primary Care Provider] -
--- NOTE | 2017-11-12 15:54 | Internal Med Progress Note ---
Date of Encounter: 11/12/17 Time of Encounter: 15:48 - Assessment and plan (1) Severe sepsis Current Visit: Yes Status: Acute Assessment and plan: Secondary to Left leg cellulitis. On admission patient had tachycardia, hypotension, leukocytosis BP improving today - must use manual BP measurements Linezolid and Cefepime chosen to avoid Will change vancomycin to Linezolid to reduce renal toxicity, kidney function worsening. (2) Acute on chronic kidney failure Current Visit: Yes Status: Acute Assessment and plan: Likely from hypotension and sepsis. - Continue IV fluid resuscitation - Avoid nephrotoxins - Renally dose medicaitons - Consult Nephrology Qualifiers: Acute renal failure type: unspecified Chronic kidney disease stage: stage 3 (moderate) Qualified Code(s): N17.9 - Acute kidney failure, unspecified; N18.3 - Chronic kidney disease, stage 3 (moderate); N18.3 - Chronic kidney disease, stage 3 (moderate) (3) Atrial fibrillation Current Visit: Yes Status: Chronic Assessment and plan: - Rate controlled. - Continue Coumadin. Pharmacy to dose. Patient takes diltiazem 120 mg by mouth daily at home as well as Toprol-XL 50 mg by mouth daily. Metoprolol has been stopped due to hypotension/SIRS. Will restart when patient is stable. Qualifiers: Atrial fibrillation type: chronic Qualified Code(s): I48.2 - Chronic atrial fibrillation (4) CKD (chronic kidney disease) Current Visit: Yes Status: Chronic Assessment and plan: Stage III. Patient is on vancomycin, pharmacy to dose. Try to avoid other nephrotoxins Patient is receiving IV fluid hydration. Continue to monitor labs. Qualifiers: Chronic kidney disease stage: stage 3 (moderate) Qualified Code(s): N18.3 - Chronic kidney disease, stage 3 (moderate) (5) Hypothyroidism Current Visit: Yes Status: Chronic Assessment and plan: Chronic. Continue home medication. Qualifiers: Hypothyroidism type: acquired Qualified Code(s): E03.9 - Hypothyroidism, unspecified (6) Cellulitis of right lower extremity Current Visit: No Status: Acute (7) DVT prophylaxis Current Visit: No Status: Acute Assessment and plan: Patient is anticoagulated on Coumadin. Pharmacy is dosing. INR is supratherapeutic at 4.2. Continue to monitor labs in the morning. - Subjective Interval history: No acute events. Still having left leg cellulitis pain. Nursing reports she is not elevating leg as we advised. - Constitutional Vitals: Temp Pulse Resp BP Pulse Ox 97.6 F 80 18 108/56 95 11/12/17 06:49 11/12/17 06:49 11/12/17 06:49 11/12/17 06:49 11/12/17 06:49 General appearance: Present: cooperative, disheveled, A&O X 3, morbidly obese, pleasant, no acute distress, answers questions appropriately Exam: - Head Head exam: Present: atraumatic, normal inspection, normocephalic - Eye Eye exam: Present: conjuntiva pink, sclera anicteric - Neck Neck exam general surgery: Present: supple, trachea midline. Absent: lymphadenopathy, tenderness - Respiratory Respiratory exam: Present: CTAB. Absent: accessory muscle use, chest wall tenderness, prolonged expiratory phase, rales, rhonchi, wheezes - Cardiovascular Cardiovascular exam: Present: RRR, +S1, +S2. Absent: diastolic murmur, gallop, irregular rhythm, rubs, systolic murmur - GI/Abdominal GI/Abdominal exam: Present: normal bowel sounds, soft. Absent: distended, hepatomegaly, tenderness - Extremities Exam Extremities exam: Present: pedal edema, tenderness, warm, radial pulses palpable and symmetrical. Absent: calf tenderness, cyanotic, normal inspection - Neurological Exam Neurological exam: Present: alert, oriented X3, no focal deficits. Absent: facial droop, speech deficit - Skin Skin exam: Present: dry, intact, normal color, warm. Absent: rash Internal Medicine: Result - Labs CBC & Chem 7: 11/12/17 04:57 11/12/17 04:57 Labs: Short CBC 11/12/17 Range/Units 04:57 WBC 13.6 H (4.3-11.1) K/mcL Hgb 8.8 L (11.5-15.4) g/dL Hct 28.6 L (35.3-44.9) % Plt Count 274 (140-400) K/mcL Neutrophils # 11.7 H (1.6-8.9) K/mcL BMP 11/12/17 04:57 Sodium 133 L Potassium 4.1 Chloride 103 Carbon Dioxide 24 BUN 72 H Creatinine 2.59 H Glucose 124 H Calcium 8.1 L - ABG Interpretation ABG results: ABG ABG pH 7.32 pH Units (7.32-7.45) 11/11/17 09:56 ABG pCO2 51 mmHg (35-45) H 11/11/17 09:56 ABG pO2 68 mmHg (85-104) L 11/11/17 09:56 ABG O2 Saturation 91 % (95-98) L 11/11/17 09:56 PT/INR, D-dimer PT 49.0 Seconds (9.4-12.1) H* 11/12/17 04:57 Consult Discharge Plan - Plan Referrals: Orlin Martinez MD [Primary Care Provider] -
[2017-11-12 21:07] LABS: Potassium,Urine 12.9 mEq/L; Sodium, Urine 14.5 mEq/L
[2017-11-12] MEDS: Cefepime HCl 2,000 MG in Water for inj. (sterile) 20 ML 20 ML IVP SCH (21:20)
[2017-11-13] MEDS: Acetaminophen 325 MG TABLET PO PRN ×2 (06:25→19:52)
[2017-11-13 07:22] LABS: INR 3.6; Prothrombin Time 39.8 Seconds (9.4-12.1)
[2017-11-13 07:29] LABS: Calcium 8.5 mg/dL (8.6-10.3); Potassium 4.2 mEq/L (3.5-5.1); Uric Acid 9.8 mg/dL (2.3-7.6)
[2017-11-13 07:32] LABS: Basophils % 0.3 %; Eosinophils # 0.3 K/mcL (0.0-0.6); Eosinophils % 2.3 %; Hematocrit 29.8 % (35.3-44.9); Hemoglobin 9.4 g/dL (11.5-15.4); Immature Granulocytes % 1.8 % (0-4); Lymphocytes # 0.9 K/mcL (0.6-4.6); Lymphocytes % 7.7 %; Mean Corpuscular HGB Conc 31.5 g/dL (31.6-35.5); Mean Corpuscular Hemoglobin 28.1 pg (28.0-33.3); Monocytes # 0.6 K/mcL (0.0-1.3); Monocytes % 5.5 %; Neutrophils # 9.2 K/mcL (1.6-8.9); Platelet Count 316 K/mcL (140-400); Red Blood Count 3.35 M/mcL (3.82-4.97); Red Cell Distribution Width 16.4 % (11.5-14.5); Segmented Neutrophils % 82.4 %
[2017-11-13] MEDS: Cyanocobalamin (B-12) 1,000 MCG TABLET PO SCH (08:10)
[2017-11-13] MEDS: Miconazole 2% ointment 114 GM TUBE TP SCH ×2 (08:10→19:54)
[2017-11-13] MEDS: Folic Acid 1 MG TABLET PO SCH (08:10)
[2017-11-13] MEDS: Cholecalciferol (D-3) 1,000 UNIT TABLET PO SCH (08:10)
[2017-11-13] MEDS: FISH OIL 500 MG PO SCH (08:16)
--- NOTE | 2017-11-13 11:53 | Nephrology Progress Note ---
Date of Encounter: 11/13/17 Time of Encounter: 10:35 - Assessment and Plan (1) Acute on chronic kidney failure Status: Resolved SCr nicely trending better. Suspect prerenal in etiology. Continue to hold the lasix/HCTZ and agree with avoiding Vanco Qualifiers: Acute renal failure type: unspecified Chronic kidney disease stage: stage 3 (moderate) Qualified Code(s): N17.9 - Acute kidney failure, unspecified; N18.3 - Chronic kidney disease, stage 3 (moderate); N18.3 - Chronic kidney disease, stage 3 (moderate) (2) CKD (chronic kidney disease), stage III Status: Chronic (3) Venous stasis dermatitis of both lower extremities Status: Chronic (4) Cellulitis Status: Acute Qualifiers: Site of cellulitis: extremity Site of cellulitis of extremity: lower extremity Laterality: left Qualified Code(s): L03.116 - Cellulitis of left lower limb (5) HTN (hypertension) Status: Chronic Qualifiers: Hypertension type: essential hypertension Qualified Code(s): I10 - Essential (primary) hypertension (6) Hyponatremia Status: Acute Subjective Principal diagnosis: SATYA Interval history: Pt was s/e and did not affirm N/V/D or uremic symptoms. Objective - Vital Signs Vital signs: Vital Signs Temp Pulse Resp BP Pulse Ox 11/13/17 11:35 97.6 F 85 16 119/75 95 11/13/17 06:41 97.7 F 92 16 110/55 92 11/13/17 05:00 98 F 81 18 96/57 92 11/13/17 00:00 98 F 74 18 105/68 95 11/12/17 19:00 98 F 56 18 103/58 99 11/12/17 16:17 98.4 F 78 18 108/60 96 Intake and Output 11/12/17 11/13/17 11/13/17 23:59 07:59 15:59 Intake Total 660 / 660 240 / 240 120 / 120 Output Total 1000 / 1000 1150 / 1150 350 / 350 Balance -340 / -340 -910 / -910 -230 / -230 Intake: IV Fluids 300 / 300 Zyvox Premix 600mg/300mL 600 mg 300 / 300 In 300 ml @ 150 mls/hr IVPB Q12HR [facility] Rx#:[id number] Oral 360 / 360 240 / 240 120 / 120 Output: Catheter 1000 / 1000 1150 / 1150 350 / 350 Other: Meal Breakfast Percent of Meal Consumed 100% Weight 131.8 kg Patient Weight 11/13/17 23:59 Weight 131.8 kg - General Appearance General appearance: Present: well-developed, well-nourished, appears started age , obese EENT: Present: ATNC, PERRL, mucous membranes moist Neck: Present: no carotid bruit, supple Respiratory: Present: clear Cardiology: Present: edema, regular rate, regular rhythm, normal S1, normal S2 Gastrointestinal: Present: normoactive bowel sounds, no tenderness, obese Integumentary: Present: warm and dry, chronic venous stasis Neurologic: Present: no focal deficit, no asterixis, alert and oriented x3 Musculoskeletal: Present: no cyanosis, no clubbing Psychiatric: Present: mood/affect appropriate, cooperative - Lab 11/15/17 06:12 11/15/17 06:12 Most recent lab results ABG pH 7.32 pH Units (7.32-7.45) 11/11/17 09:56 ABG pCO2 51 mmHg (35-45) H 11/11/17 09:56 ABG pO2 68 mmHg (85-104) L 11/11/17 09:56 ABG HCO3 26 mEq/L (21-27) 11/11/17 09:56 ABG O2 Saturation 91 % (95-98) L 11/11/17 09:56 Calcium 8.5 mg/dL (8.6-10.3) L 11/13/17 06:53 Magnesium 1.9 mg/dL (1.6-2.6) 11/10/17 04:28 Urine Sodium 14.5 mEq/L 11/12/17 18:35 Consult Discharge Plan - Plan Instructions: Chronic Kidney Disease (DC), Cellulitis (DC) Referrals: Orlin Martinez MD [Primary Care Provider] - Prescriptions: levoFLOXacin [Levaquin] 750 mg PO DAILY #14 tablet Nystatin [Nystatin Suspension] 100,000 units PO QID #120 ml
--- NOTE | 2017-11-13 16:35 | Internal Med Progress Note ---
Date of Encounter: 11/13/17 Time of Encounter: 16:32 - Assessment and plan (1) Severe sepsis Current Visit: Yes Status: Acute Assessment and plan: Secondary to Left leg cellulitis. On admission patient had tachycardia, hypotension, leukocytosis BP improving today - must use manual BP measurements Linezolid and Cefepime chosen to avoid Will change vancomycin to Linezolid to reduce renal toxicity, kidney function worsening. Prelim wound cultures growing 4 organisms. Will need sensitivities prior to discharge. (2) Acute on chronic kidney failure Current Visit: Yes Status: Acute Assessment and plan: Likely from hypotension and sepsis. - Continue IV fluid resuscitation - Avoid nephrotoxins - Renally dose medicaitons - Consult Nephrology Qualifiers: Acute renal failure type: unspecified Chronic kidney disease stage: stage 3 (moderate) Qualified Code(s): N17.9 - Acute kidney failure, unspecified; N18.3 - Chronic kidney disease, stage 3 (moderate); N18.3 - Chronic kidney disease, stage 3 (moderate) (3) Atrial fibrillation Current Visit: Yes Status: Chronic Assessment and plan: - Rate controlled. - Continue Coumadin. Pharmacy to dose. Patient takes diltiazem 120 mg by mouth daily at home as well as Toprol-XL 50 mg by mouth daily. Metoprolol has been stopped due to hypotension/SIRS. Will restart when patient is stable. Qualifiers: Atrial fibrillation type: chronic Qualified Code(s): I48.2 - Chronic atrial fibrillation (4) CKD (chronic kidney disease) Current Visit: Yes Status: Chronic Assessment and plan: Stage III. Try to avoid other nephrotoxins Patient is receiving IV fluid hydration. Continue to monitor labs. Qualifiers: Chronic kidney disease stage: stage 3 (moderate) Qualified Code(s): N18.3 - Chronic kidney disease, stage 3 (moderate) (5) Hypothyroidism Current Visit: Yes Status: Chronic Assessment and plan: Chronic. Continue home medication. Qualifiers: Hypothyroidism type: acquired Qualified Code(s): E03.9 - Hypothyroidism, unspecified (6) Cellulitis of right lower extremity Current Visit: No Status: Acute (7) DVT prophylaxis Current Visit: No Status: Acute Assessment and plan: Patient is anticoagulated on Coumadin. Pharmacy is dosing. I - Subjective Interval history: No acute events. leg pain feeling better. complains of fatigue. - Constitutional Vitals: Temp Pulse Resp BP Pulse Ox 97.5 F L 81 16 105/61 95 11/13/17 15:10 11/13/17 15:10 11/13/17 15:10 11/13/17 15:10 11/13/17 15:10 General appearance: Present: cooperative, disheveled, A&O X 3, morbidly obese, pleasant, no acute distress, answers questions appropriately Exam: - Head Head exam: Present: atraumatic, normal inspection, normocephalic - Eye Eye exam: Present: conjuntiva pink, sclera anicteric - Neck Neck exam general surgery: Present: supple, trachea midline. Absent: lymphadenopathy, tenderness - Respiratory Respiratory exam: Present: CTAB. Absent: accessory muscle use, chest wall tenderness, prolonged expiratory phase, rales, rhonchi, wheezes - Cardiovascular Cardiovascular exam: Present: RRR, +S1, +S2. Absent: diastolic murmur, gallop, irregular rhythm, rubs, systolic murmur - GI/Abdominal GI/Abdominal exam: Present: normal bowel sounds, soft. Absent: distended, hepatomegaly, tenderness - Extremities Exam Extremities exam: Present: pedal edema, tenderness, warm, radial pulses palpable and symmetrical. Absent: calf tenderness, cyanotic, normal inspection - Neurological Exam Neurological exam: Present: alert, oriented X3, no focal deficits. Absent: facial droop, speech deficit - Skin Skin exam: Present: dry, intact, normal color, warm. Absent: rash Internal Medicine: Result - Labs CBC & Chem 7: 11/13/17 06:53 11/13/17 06:53 Labs: Short CBC 11/13/17 Range/Units 06:53 WBC 11.1 (4.3-11.1) K/mcL Hgb 9.4 L (11.5-15.4) g/dL Hct 29.8 L (35.3-44.9) % Plt Count 316 (140-400) K/mcL Neutrophils # 9.2 H (1.6-8.9) K/mcL BMP 11/13/17 06:53 Sodium 133 L Potassium 4.2 Chloride 105 Carbon Dioxide 22 L BUN 62 H Creatinine 1.86 H Glucose 106 H Calcium 8.5 L - ABG Interpretation ABG results: ABG ABG pH 7.32 pH Units (7.32-7.45) 11/11/17 09:56 ABG pCO2 51 mmHg (35-45) H 11/11/17 09:56 ABG pO2 68 mmHg (85-104) L 11/11/17 09:56 ABG O2 Saturation 91 % (95-98) L 11/11/17 09:56 PT/INR, D-dimer PT 39.8 Seconds (9.4-12.1) H 11/13/17 06:53 - Impressions Impressions Retroperitoneum Ultrasound 11/12/17 17:00 IMPRESSION: Right renal cortical scarring. Kidneys are otherwise unremarkable. No hydronephrosis. D/ / Tod Gibson / Tod Gibson Interpreting Provider: Tod Gibson Consult Discharge Plan - Plan Referrals: Orlin Martinez MD [Primary Care Provider] -
[2017-11-13] MEDS: Cefepime HCl 2,000 MG in Water for inj. (sterile) 20 ML 20 ML IVP SCH (23:10)
[2017-11-14 07:46] LABS: Basophils % 0.3 %; Eosinophils # 0.2 K/mcL (0.0-0.6); Eosinophils % 2.2 %; Hematocrit 30.1 % (35.3-44.9); Hemoglobin 9.4 g/dL (11.5-15.4); Immature Granulocytes % 3.9 % (0-4); Lymphocytes # 0.7 K/mcL (0.6-4.6); Lymphocytes % 6.8 %; Mean Corpuscular HGB Conc 31.2 g/dL (31.6-35.5); Mean Corpuscular Hemoglobin 27.9 pg (28.0-33.3); Mean Corpuscular Volume 89.3 fL (83.0-100.0); Mean Platelet Volume 9.7 fL (9.4-12.4); Monocytes # 0.8 K/mcL (0.0-1.3); Monocytes % 7.2 %; Neutrophils # 8.3 K/mcL (1.6-8.9); Platelet Count 359 K/mcL (140-400); Red Blood Count 3.37 M/mcL (3.82-4.97); Red Cell Distribution Width 16.5 % (11.5-14.5); Segmented Neutrophils % 79.6 %
[2017-11-14 07:51] LABS: INR 2.7; Prothrombin Time 30.2 Seconds (9.4-12.1)
[2017-11-14] MEDS: Folic Acid 1 MG TABLET PO SCH (07:54)
[2017-11-14] MEDS: Cholecalciferol (D-3) 1,000 UNIT TABLET PO SCH (07:54)
[2017-11-14] MEDS: Cyanocobalamin (B-12) 1,000 MCG TABLET PO SCH (07:54)
[2017-11-14] MEDS: Miconazole 2% ointment 114 GM TUBE TP SCH ×2 (07:54→21:56)
[2017-11-14] MEDS: Acetaminophen 325 MG TABLET PO PRN ×2 (07:54→22:00)
[2017-11-14] MEDS: FISH OIL 500 MG PO SCH (07:54)
[2017-11-14 08:06] LABS: Calcium 8.7 mg/dL (8.6-10.3); Potassium 4.6 mEq/L (3.5-5.1)
--- NOTE | 2017-11-14 10:30 | Event Note ---
Date of Encounter: 11/14/17 Time of Encounter: 10:28 Nephrology Chart Review SATYA on CKD state III, nonoliguric and nicely improving. Cont to follow a renal conservative strategy and cont to hold the BETSY/HCTZ for now. She'll need outpt nephrology follow up, and I'd recommend checking a BMP about 1 -2 weeks after D/C and follow up with me in about 3-5 weeks. Will sign-off, but please feel free to call or reconsult as needed. Thank you.
[2017-11-14] MEDS: Linezolid 600 MG TABLET PO SCH (16:56)
[2017-11-14] MEDS: *HR* Warfarin 5 MG TABLET PO SCH (16:56)
--- NOTE | 2017-11-14 21:30 | Internal Med Progress Note ---
Date of Encounter: 11/14/17 Time of Encounter: 12:29 - Assessment and plan (1) Severe sepsis Status: Acute Assessment and plan: Secondary to Left leg cellulitis. On admission patient had tachycardia, hypotension, leukocytosis BP improving today - must use manual BP measurements Linezolid and Cefepime chosen to avoid Will change vancomycin to Linezolid to reduce renal toxicity, kidney function worsening. Prelim wound cultures growing 4 organisms. Will need sensitivities prior to discharge. Consult ID (2) Atrial fibrillation Status: Chronic Assessment and plan: - Rate controlled. - Continue Coumadin. Pharmacy to dose. Patient takes diltiazem 120 mg by mouth daily at home as well as Toprol-XL 50 mg by mouth daily. Metoprolol has been stopped due to hypotension/SIRS. Will restart when patient is stable. Qualifiers: Atrial fibrillation type: chronic Qualified Code(s): I48.2 - Chronic atrial fibrillation (3) CKD (chronic kidney disease) Status: Chronic Assessment and plan: Stage III. Try to avoid other nephrotoxins Patient is receiving IV fluid hydration. Continue to monitor labs. Qualifiers: Chronic kidney disease stage: stage 3 (moderate) Qualified Code(s): N18.3 - Chronic kidney disease, stage 3 (moderate) (4) Hypothyroidism Status: Chronic Assessment and plan: Chronic. Continue home medication. Qualifiers: Hypothyroidism type: acquired Qualified Code(s): E03.9 - Hypothyroidism, unspecified (5) Cellulitis of right lower extremity Status: Acute (6) DVT prophylaxis Status: Acute Assessment and plan: Patient is anticoagulated on Coumadin. Pharmacy is dosing. I - Subjective Interval history: No acute events. leg pain feeling better. - Constitutional Vitals: Temp Pulse Resp BP Pulse Ox 97.8 F 89 16 130/72 96 11/14/17 20:00 11/14/17 20:00 11/14/17 20:00 11/14/17 20:00 11/14/17 20:00 General appearance: Present: cooperative, disheveled, A&O X 3, morbidly obese, pleasant, no acute distress, answers questions appropriately Exam: CVS: RRR Lungs: CTAB Ext: 2+ non pitting edema, left leg with improving erythema Internal Medicine: Result - Labs CBC & Chem 7: 11/15/17 06:12 11/15/17 06:12 Labs: Short CBC 11/14/17 Range/Units 07:02 WBC 10.4 (4.3-11.1) K/mcL Hgb 9.4 L (11.5-15.4) g/dL Hct 30.1 L (35.3-44.9) % Plt Count 359 (140-400) K/mcL Neutrophils # 8.3 (1.6-8.9) K/mcL BMP 11/14/17 07:02 Sodium 135 L Potassium 4.6 Chloride 106 Carbon Dioxide 23 BUN 50 H Creatinine 1.46 H Glucose 99 Calcium 8.7 - ABG Interpretation ABG results: ABG ABG pH 7.32 pH Units (7.32-7.45) 11/11/17 09:56 ABG pCO2 51 mmHg (35-45) H 11/11/17 09:56 ABG pO2 68 mmHg (85-104) L 11/11/17 09:56 ABG O2 Saturation 91 % (95-98) L 11/11/17 09:56 PT/INR, D-dimer PT 30.2 Seconds (9.4-12.1) H 11/14/17 07:02 Consult Discharge Plan - Plan Instructions: Chronic Kidney Disease (DC), Cellulitis (DC) Referrals: Orlin Martinez MD [Primary Care Provider] - Prescriptions: levoFLOXacin [Levaquin] 750 mg PO DAILY #14 tablet Nystatin [Nystatin Suspension] 100,000 units PO QID #120 ml
[2017-11-14] MEDS: Cefepime HCl 2,000 MG in Water for inj. (sterile) 20 ML 20 ML IVP SCH (21:55)
[2017-11-14 23:44] LABS: Kappa Qnt Free Light Chains 11.3 mg/dL (0.33-1.94); Lambda Qnt Free Light Chains 8.08 mg/dL (0.57-2.63)
[2017-11-15] MEDS: Linezolid 600 MG TABLET PO SCH (06:13)
[2017-11-15 07:46] LABS: Calcium 8.8 mg/dL (8.6-10.3); Potassium 4.9 mEq/L (3.5-5.1)
[2017-11-15 08:29] LABS: Basophils % 0.3 %; Eosinophils # 0.2 K/mcL (0.0-0.6); Eosinophils % 1.8 %; Hematocrit 28.2 % (35.3-44.9); Hemoglobin 8.9 g/dL (11.5-15.4); Immature Granulocytes % 4.4 % (0-4); Lymphocytes # 0.8 K/mcL (0.6-4.6); Lymphocytes % 8.6 %; Mean Corpuscular HGB Conc 31.6 g/dL (31.6-35.5); Mean Corpuscular Volume 88.7 fL (83.0-100.0); Mean Platelet Volume 9.8 fL (9.4-12.4); Monocytes # 0.8 K/mcL (0.0-1.3); Monocytes % 8.9 %; Neutrophils # 6.8 K/mcL (1.6-8.9); Platelet Count 337 K/mcL (140-400); Red Blood Count 3.18 M/mcL (3.82-4.97); Red Cell Distribution Width 16.5 % (11.5-14.5)
[2017-11-15 10:05] LABS: ANA IgG by ELISA NONE DETECTED (None Detected)
[2017-11-15 10:06] LABS: Myeloperoxidase Ab 1 AU/mL (0-19); Serine Protease-3 Antibody 2 AU/mL (0-19)
[2017-11-15] MEDS: Acetaminophen 325 MG TABLET PO PRN (10:12)
[2017-11-15] MEDS: Folic Acid 1 MG TABLET PO SCH (10:13)
[2017-11-15] MEDS: Cholecalciferol (D-3) 1,000 UNIT TABLET PO SCH (10:13)
[2017-11-15] MEDS: Cyanocobalamin (B-12) 1,000 MCG TABLET PO SCH (10:13)
[2017-11-15] MEDS: Miconazole 2% ointment 114 GM TUBE TP SCH (10:13)
[2017-11-15 11:37] LABS: INR 2.3; Prothrombin Time 24.8 Seconds (9.4-12.1)
--- NOTE | 2017-11-15 12:58 | Internal Med Progress Note ---
Date of Encounter: 11/15/17 Time of Encounter: 12:56 - Assessment and plan (1) Severe sepsis Current Visit: Yes Status: Acute Assessment and plan: Secondary to Left leg cellulitis. On admission patient had tachycardia, hypotension, leukocytosis BP improving today - must use manual BP measurements Linezolid and Cefepime chosen to avoid Will change vancomycin to Linezolid to reduce renal toxicity, kidney function worsening. Prelim wound cultures growing 4 organisms. Will need sensitivities prior to discharge. Consult ID (2) Acute on chronic kidney failure Current Visit: Yes Status: Resolved Assessment and plan: Likely from hypotension and sepsis. Imroved with IV fluids Resolved Qualifiers: Acute renal failure type: unspecified Chronic kidney disease stage: stage 3 (moderate) Qualified Code(s): N17.9 - Acute kidney failure, unspecified; N18.3 - Chronic kidney disease, stage 3 (moderate); N18.3 - Chronic kidney disease, stage 3 (moderate) (3) Atrial fibrillation Current Visit: Yes Status: Chronic Assessment and plan: - Rate controlled. - Continue Coumadin. Pharmacy to dose. Patient takes diltiazem 120 mg by mouth daily at home as well as Toprol-XL 50 mg by mouth daily. Metoprolol was stopped due to hypotension/sepsis. Okay to restart Toprol XL 50 mg today Qualifiers: Atrial fibrillation type: chronic Qualified Code(s): I48.2 - Chronic atrial fibrillation (4) CKD (chronic kidney disease) Current Visit: Yes Status: Chronic Assessment and plan: Stage III. Try to avoid other nephrotoxins Patient is receiving IV fluid hydration. Continue to monitor labs. Qualifiers: Chronic kidney disease stage: stage 3 (moderate) Qualified Code(s): N18.3 - Chronic kidney disease, stage 3 (moderate) (5) Hypothyroidism Current Visit: Yes Status: Chronic Assessment and plan: Chronic. Continue home medication. Qualifiers: Hypothyroidism type: acquired Qualified Code(s): E03.9 - Hypothyroidism, unspecified (6) Cellulitis of right lower extremity Current Visit: No Status: Acute (7) DVT prophylaxis Current Visit: No Status: Acute Assessment and plan: Patient is anticoagulated on Coumadin. Pharmacy is dosing. I - Subjective Interval history: No acute events. - Constitutional Vitals: Temp Pulse Resp BP Pulse Ox 98.0 F 85 16 118/68 94 11/15/17 11:33 11/15/17 11:33 11/15/17 11:33 11/15/17 11:33 11/15/17 11:33 General appearance: Present: cooperative, disheveled, A&O X 3, morbidly obese, pleasant, no acute distress, answers questions appropriately Exam: CVS: RRR Lungs: CTAB Exg: bilateral pedal edema , left leg erythema with cellulitic changes Internal Medicine: Result - Labs CBC & Chem 7: 11/15/17 06:12 11/15/17 06:12 Labs: Short CBC 11/15/17 Range/Units 06:12 WBC 8.9 (4.3-11.1) K/mcL Hgb 8.9 L (11.5-15.4) g/dL Hct 28.2 L (35.3-44.9) % Plt Count 337 (140-400) K/mcL Neutrophils # 6.8 (1.6-8.9) K/mcL BMP 11/15/17 06:12 Sodium 136 Potassium 4.9 Chloride 107 Carbon Dioxide 23 BUN 41 H Creatinine 1.18 Glucose 91 Calcium 8.8 - ABG Interpretation ABG results: ABG ABG pH 7.32 pH Units (7.32-7.45) 11/11/17 09:56 ABG pCO2 51 mmHg (35-45) H 11/11/17 09:56 ABG pO2 68 mmHg (85-104) L 11/11/17 09:56 ABG O2 Saturation 91 % (95-98) L 11/11/17 09:56 PT/INR, D-dimer PT 24.8 Seconds (9.4-12.1) H 11/15/17 10:08 Consult Discharge Plan - Plan Referrals: Orlin Martinez MD [Primary Care Provider] -
[2017-11-15] MEDS ORDERED: Cefepime HCl 2,000 MG in Water for inj. (sterile) 20 ML 20 ML IVP SCH (14:00)
--- NOTE | 2017-11-15 14:39 | Infectious Disease Consult ---
Date of Encounter: 11/15/17 Time of Encounter: 13:30 Assessment and Plan (1) Cellulitis of right lower extremity Status: Acute Assessment and plan: Presented with increased erythema, swelling, and pain than normal Under the care for chronic venous stasis and bilateral ulcers by Dr. Jones Patient reports legs about at baseline for her Patient had received vancomycin and Zosyn prior to being switched to Zyvox and cefepime due to worsening renal function We will stop Zyvox and cefepime Start by mouth Levaquin 750 mg every 24 hours for a total of 14 days We will adjust antibiotics if culture and sensitivities indicate (2) Venous stasis dermatitis of both lower extremities Status: Chronic Assessment and plan: Patient reports having chronic venous stasis of bilateral lower extremities Significant chronic swelling noted Patient being seen by Dr. Jones for chronic management Patient reports legs currently back to baseline (3) Acute kidney injury superimposed on chronic kidney disease Status: Acute Assessment and plan: Patient has history of chronic kidney disease stage 3-4 Presented with worsened renal function Nephrology did evaluate patient prior to signing off care with improvement of renal function Renal function worsened on Zosyn and vancomycin, possibly coincidental, but antibiotics changed Renal function continued to show improvement Current creatinine clearance 58, will dose medications accordingly (4) Thrush, oral Status: Acute Assessment and plan: Start nystatin swish and swallow (5) Heart failure with preserved ejection fraction Status: Acute Assessment and plan: Continue management per primary team (6) Atrial fibrillation Status: Chronic Assessment and plan: Continued management per primary team Qualifiers: Atrial fibrillation type: chronic Qualified Code(s): I48.2 - Chronic atrial fibrillation Infectious Disease HPI - Data of Consult Patient: new to practice Consult date: 11/15/17 Requesting Physician: Ean Lo MD Primary Care Provider: Orlin Martinez, - Consult Narrative Reason for consult: Cellulitis History of present illness: Ms. Shelton is a 72 year old female with prior medical history of atrial fibrillation (on Coumadin), hypertension, hypothyroidism, HFpEF (EF 60%, indeterminate diastolic function), chronic kidney disease stage III, and recurrent cellulitis presented to [facility] on 11/09/17 with increased left lower extremity pain, swelling, and leaking. Infectious disease was consulted on to assist with recommendation for her cellulitis. She has chronic venous insufficiency and venous ulcers of both legs for which she is under the care of Dr. Jones. She states she has had multiple episodes of cellulitis in the past, usually on her right leg. She states that her current problem has been going on for 1-1.5 months but became acutely worse about a week prior to presentation to hospital. She states the pain, swelling, and leaking in her left lower extremity became worse that had previously eventually prompting her to come to the hospital. She had last seen Dr. Jones on 11/04/17 and she did not appear to have cellulitis at that time. In the emergency department she was reporting having had fever, chills, and a sore throat along with her above symptoms in her leg. She was afebrile with mild tachycardia of 94 and an elevated white blood cell count. She appeared to have an acute kidney injury as well. She was started on vancomycin and Zosyn originally. Over the next couple days her kidneys worsened and her antibiotics were switched to Zyvox and cefepime. Over the next couple days she states some improvement in this 1-year-old legs and states they are close to her baseline. She does state that she has continued to have some mild hip pain, but pain, and chills but is otherwise improved. CC: Ean Lo MD Past Med Surg Social Fam HX - Past Medical History Medical history: atrial fibrillation, CHF, hypertension, thyroid disease Psychiatric history: no psych history - Past Surgical History Surgical History: other - Social History Smoking Status: Current every day smoker Smokeless Tobacco Status: No Alcohol use: none Drug use: none - Family History Mother Living Status: Father Living Status: Hx Family Cardiac Disorders: Yes (HYPERTENSION.) Son Living Status: Still Living Infectious Disease-CN:Meds Furosemide [Lasix] 40 mg PO DAILY 03/08/16 [History] Cholecalciferol (D-3) [Vitamin D] 1,000 unit PO DAILY 03/09/16 [History] Cyanocobalamin (Vitamin B-12) [Vitamin B12] 1,000 mcg PO DAILY 03/09/16 [History ] Folic Acid 0.4 mg PO DAILY 03/09/16 [History] Lisinopril/Hydrochlorothiazide [Zestoretic 20-25 mg Tablet] 1 tab PO DAILY 03/09 [History] [place]-3/Dha/Epa/Fish Oil [Fish Oil Dr 500 mg Softgel] 1,000 mg PO DAILY [History] Omeprazole [PriLOSEC] 40 mg PO DAILY 09/29/17 [History] Warfarin [Coumadin] 7.5 mg PO 1800 09/29/17 [History] Calcium Carbonate [Calcium] 600 mg PO DAILY 11/09/17 [History] Diltiazem HCl [Diltiazem ER] 120 mg PO DAILY 11/09/17 [History] Guaifenesin [Mucinex] 600 mg PO DAILY 11/09/17 [History] Levothyroxine Sodium 150 mcg PO QAM 11/09/17 [History] Metoprolol XL (24 HR) Succ [Toprol Xl] 50 mg PO DAILY 11/09/17 [History] Nystatin [Nystatin Suspension] 100,000 units PO QID #120 ml 11/15/17 [Rx] levoFLOXacin [Levaquin] 750 mg PO DAILY #14 tablet 11/15/17 [Rx] 3 Allergy/AdvReac Type Severity Reaction Status Date / Time aspirin Allergy Difficulty Verified 03/08/16 16:23 Breathing ibuprofen Allergy Difficulty Verified 03/08/16 16:23 Breathing acetaminophen AdvReac Gastrointestinal Verified 03/08/16 22:29 [From Excedrin Back and Body] Upset calcium carbonate AdvReac Gastrointestinal Verified 03/08/16 22:29 [From Excedrin Back and Body] Upset Review of systems: Gen: Denies fever, reports chills, denies weakness, denies fatigue CV: Denies chest pain, denies palpitations Resp: Denies dyspnea, denies coughing, denies changes in phlegm production, denies wheeze GI: Denies nausea, denies vomiting, denies abdominal pain, denies constipation, denies diarrhea MSK: denies arthralgia, denies muscle weakness Neuro: Denies headache, denies confusion, denies focal weakness, denies numbness , denies tingling, denies vision changes Skin: Denies bruising, denies rash, reports chronic venous stasis and swelling of the lower extremities, reports improvement in left lower extremity leaking, reports improvement in left leg pain, reports mild hip pain : Denies flank pain, denies dysuria, denies hematuria Exam - Constitutional Vitals: Temp Pulse Resp BP Pulse Ox 98.0 F 85 16 118/68 94 11/15/17 11:33 11/15/17 11:33 11/15/17 11:33 11/15/17 11:33 11/15/17 11:33 - Additional findings Additional findings: General: Cooperative, pleasant, no acute distress, alert and oriented 3, answers questions appropriately HEENT: Normocephalic, atraumatic, neck supple, trachea midline, Conjunctiva pink , sclera anicteric, oral mucosa moist, no orophargeal erythema or exudates, thrush observed Respiratory: No accessory muscle usage, clear to auscultation bilaterally, no wheezes/rhonchi/rales appreciated Cardiovascular: Regular rate and rhythm, S1 and S2 present, no murmurs/rubs/ gallops/clicks appreciated GI/abdominal: Nondistended, nontender, soft, normal bowel sounds, no peritoneal signs Extremities: No calf tenderness, noncyanotic, mild tenderness in anterior thomas of left leg, significant bilateral lower extremity edema, bilateral weeping, symmetrical erythema, slightly asymmetric warmth L>R, warm, lower extremity pulses palpable and symmetrical Neurological: Alert and oriented 3, no facial droop, no focal deficits Skin: Chronic stasis of bilateral lower extremities, increased erythema, bilateral lower extremities damp Infectious Disease CN: Results - Labs CBC & Chem 7: 11/15/17 06:12 11/15/17 06:12 Serology: Serology 11/12/17 11/12/17 Range/Units 18:35 18:35 Urine Osmolality 386 ([id number]) mOsm/kg Urine Sodium 14.5 mEq/L Urine Potassium 12.9 mEq/L Consult Discharge Plan - Plan Instructions: Chronic Kidney Disease (DC), Cellulitis (DC) Referrals: Orlin Martinez MD [Primary Care Provider] - Prescriptions: levoFLOXacin [Levaquin] 750 mg PO DAILY #14 tablet Nystatin [Nystatin Suspension] 100,000 units PO QID #120 ml - Attending Attestation I examined this patient and my medical decision-making was reviewed with the Resident Physician. I agree with the documented findings, disposition and treatment plan as described except to the extent set forth below. This is an addendum to original report dictated by resident physician. Please refer to Dr. Lehman note for full detail. Patient is a 72-year-old woman who has chronic venous stasis atrial fibrillation on Coumadin, hypothyroidism, CHF, hypertension and chronic kidney disease stage III came in to [facility] on 2017 with increased left lower extremity pain swelling and seepage. We are consulted for treatment of cellulitis. Patient when she first came in reported having fevers chills. She was tachycardic and had elevated WBC. She was also having acute kidney injury. She was initially started on vancomycin and Zosyn and kidney function got worse so she was switched to Zyvox and cefepime. Currently patient laying in bed states that her legs appear like to baseline. She has no more SIRS criteria. Cultures grew Klebsiella, Pseudomonas, grew G strep. At this point agree with stopping Zyvox and cefepime starting the patient oral Levaquin to finish a 14 day course. We will dose adjust Levaquin. Patients creatinine clearance is around 50 I spoke with pharmacy and that is the number they came up with. Monitor labs and for drug toxicity.
[2017-11-15 14:47] LABS: Beta Globulin (PEP) 0.76 g/dL (0.48-1.10)
[2017-11-15 15:27] VITALS: BP 127/72
[2017-11-15] MEDS ORDERED: Magic Mouthwash 10 ML UD Cup PO SCH (16:30)
[2017-11-15] MEDS ORDERED: Nystatin SUSP 5 ML UD.LIQ PO SCH (17:00)
--- NOTE | 2017-11-15 17:21 | Discharge Summary ---
- NOTES TO OUTPATIENT PROVIDER Notes to Outpatient Provider: Wound culture sensitivities pending. Orders not resulted at time of discharge: Pending orders 11/12/17 18:13 Urinalysis reflex Microscopic [URIN] Routine 11/13/17 06:53 Immunoelectrophoresis AM 0400 11/16/17 04:00 PT/INR [Prothrombin Time INR] [COAG] AM 0400 11/17/17 04:00 PT/INR [Prothrombin Time INR] [COAG] AM 0400 11/18/17 04:00 PT/INR [Prothrombin Time INR] [COAG] AM 0400 11/19/17 04:00 PT/INR [Prothrombin Time INR] [COAG] AM 0400 11/20/17 04:00 PT/INR [Prothrombin Time INR] [COAG] AM 0400 11/21/17 04:00 PT/INR [Prothrombin Time INR] [COAG] AM 0400 Date of Encounter: 11/15/17 Time of Encounter: 17:18 - Discharge Diagnosis (1) Severe sepsis Priority: Primary Status: Acute (2) Acute on chronic kidney failure Priority: Secondary Status: Resolved Qualifiers: Acute renal failure type: unspecified Chronic kidney disease stage: stage 3 (moderate) Qualified Code(s): N17.9 - Acute kidney failure, unspecified; N18.3 - Chronic kidney disease, stage 3 (moderate); N18.3 - Chronic kidney disease, stage 3 (moderate) (3) Atrial fibrillation Priority: Secondary Status: Chronic Qualifiers: Atrial fibrillation type: chronic Qualified Code(s): I48.2 - Chronic atrial fibrillation (4) CKD (chronic kidney disease) Priority: Secondary Status: Chronic Qualifiers: Chronic kidney disease stage: stage 3 (moderate) Qualified Code(s): N18.3 - Chronic kidney disease, stage 3 (moderate) (5) Hypothyroidism Priority: Secondary Status: Chronic Qualifiers: Hypothyroidism type: acquired Qualified Code(s): E03.9 - Hypothyroidism, unspecified (6) Cellulitis of right lower extremity Priority: Secondary Status: Acute (7) DVT prophylaxis Priority: Secondary Status: Acute Hospital course: Ms. Shelton is a 72 year old female with Hx of A Fib on coumadin, HTN, hypothyroidism, diastolic CHF, hx of recurrent cellulitis present to ER for left leg pain and redness for 4 days. Pt said she has on and off recurrent LE cellulitis for about 4 yrs. It happens either on the right or the left side. This time she has left side pain and skin redness. Pt denies fever, nausea, or vomiting. Pt denies recent travel. Pt was admitted for further management. She was started on Vancomycin. SHe did get worsened and one day after admission had tachycardia, hypotension, clinically worsened. She was started on Zosyn and given IV fluids. She did have acute on chronic kidney injury which improved with fluids and medication adjustments. She was no longer septic and clinically improved with as well. Her wound culture grew 4 organisms; Klebsiella, Pseudomonas, Group G Streptococcus, and a third gram negative cecilia. ID was consulted and patient was switched to oral Levaquin. She was discharged home in stable condition. - Time Spent with Patient Total time spent providing and/or coordinating discharge services: - Discharge Medications Prescriptions: levoFLOXacin [Levaquin] 750 mg PO DAILY #14 tablet Home Medications: Furosemide [Lasix] 40 mg PO DAILY 03/08/16 [History] Cholecalciferol (D-3) [Vitamin D] 1,000 unit PO DAILY 03/09/16 [History] Cyanocobalamin (Vitamin B-12) [Vitamin B12] 1,000 mcg PO DAILY 03/09/16 [History ] Folic Acid 0.4 mg PO DAILY 03/09/16 [History] Lisinopril/Hydrochlorothiazide [Zestoretic 20-25 mg Tablet] 1 tab PO DAILY 03/09 [History] [place]-3/Dha/Epa/Fish Oil [Fish Oil Dr 500 mg Softgel] 1,000 mg PO DAILY [History] Omeprazole [PriLOSEC] 40 mg PO DAILY 09/29/17 [History] Warfarin [Coumadin] 7.5 mg PO 1800 09/29/17 [History] Calcium Carbonate [Calcium] 600 mg PO DAILY 11/09/17 [History] Diltiazem HCl [Diltiazem ER] 120 mg PO DAILY 11/09/17 [History] Guaifenesin [Mucinex] 600 mg PO DAILY 11/09/17 [History] Levothyroxine Sodium 150 mcg PO QAM 11/09/17 [History] Metoprolol XL (24 HR) Succ [Toprol Xl] 50 mg PO DAILY 11/09/17 [History] levoFLOXacin [Levaquin] 750 mg PO DAILY #14 tablet 11/15/17 [Rx] Allergies/Adverse Reactions: 3 Allergy/AdvReac Type Severity Reaction Status Date / Time aspirin Allergy Difficulty Verified 03/08/16 16:23 Breathing ibuprofen Allergy Difficulty Verified 03/08/16 16:23 Breathing acetaminophen AdvReac Gastrointestinal Verified 03/08/16 22:29 [From Excedrin Back and Body] Upset calcium carbonate AdvReac Gastrointestinal Verified 03/08/16 22:29 [From Excedrin Back and Body] Upset Date of admission: 11/12/17 15:39 Primary care physician: Orlin Martinez, Consults: 11/13/17 16:30 Consult to Occupational Therapy [CONS] Routine Comment: Evaluate, develop and implement POC Reason for Consult: Evaluate, develop and implement POC Consult to Physical Therapy [CONS] Routine Comment: Evaluate, develop and implement POC Reason for Consult: Disposition planning. Therapy - weakness in bed. 11/13/17 16:40 Consult to Occupational Therapy [CONS] Routine Comment: Evaluate, develop and implement POC Reason for Consult: Evaluate, develop and implement POC Consult to Physical Therapy [CONS] Routine Comment: Evaluate, develop and implement POC Reason for Consult: Disposition planning. Therapy - weakness in bed. 11/15/17 12:59 Consult to Infectious Diseases [CONS] Routine Consulting Provider: Infectious Disease Wendy Reason for Consult: Cellulitis Time Notified: 12:59 Call Completed: Yes Discharging clinician: Ean Lo - Constitutional Vitals: Temp Pulse Resp BP Pulse Ox 97.9 F 85 16 127/72 98 11/15/17 15:23 11/15/17 15:23 11/15/17 15:23 11/15/17 15:23 11/15/17 15:23 General appearance: Present: cooperative, disheveled, A&O X 3, morbidly obese, pleasant, no acute distress, answers questions appropriately Exam: CVS: RRR Lungs: CTAB Exg: bilateral pedal edema , left leg erythema with cellulitic changes - Patient Status Disposition: Home, Self-Care Condition: Good Functional capacity at discharge: uses cane/walker Overall status at discharge: patient is progressing back to baseline - Discharge Instructions Follow Up With: Orlin Martinez MD [Primary Care Provider] - - Diet and Activity Activity: increase activity as tolerated Diet: advance to your usual diet
[2017-11-15] MEDS: *HR* Warfarin 5 MG TABLET PO SCH (18:22)
[2017-11-16 08:27] LABS: IFE Reflexed IFE Done; Immunoglobulin A 327 mg/dL (68-408); Immunoglobulin G 1330 mg/dL (768-1632); Immunoglobulin M 64 mg/dL (35-263)
[2017-11-16] MEDS ORDERED: levoFLOXacin 750 MG TABLET PO SCH (09:00)
[2017-11-16] MEDS ORDERED: Metoprolol XL (24 HR) Succ 50 MG TAB.ER.24H PO SCH (09:00)
== END 2017-11-15 20:30 | disposition home or self-care (01) | DRG 872 ==
LOC: 3BNU 13:32 → EMEROO 13:32 → 3BNU 19:48 → 2NENU 11-10 18:24 → SUATTDRO 11-12 15:39
PROVIDERS: ADMIT Nurse Practitioner Family; ATTEND Student in an Organized Health Care Education/Training Program